=== PATIENT | female | born 1995 | race Caucasian/White ===

== ENCOUNTER 2016-05-19 19:00 | Emergency (ER) | payer OTHER ==
[~2016-05-19] VITALS: Ht 160 cm; Wt 52.4 kg
[2016-05-19 19:19] VITALS: TEMP 36.6; Ht 160 cm; Wt 52.4 kg
[2016-05-19] MEDS ORDERED: PRED20TA2 PO (19:52)
--- NOTE | 2016-05-19 20:09 | EMERGENCY ROOM VISIT NOTE ---
ED Visit Note First contact with patient: 19:37 CHIEF COMPLAINT: Rash HISTORY OF PRESENT ILLNESS: This 20 y/o patient presents to the emergency department complaining of a rash on her stomach which started 4 weeks ago. The patient denies fever, chills, nausea, or loss of appetite. They deny any URI symptoms. The patient has tried scabies cream prescribed by her PCP. The patient states the rash is itchy and rates the discomfort as 7/10. No change in food, soap, detergents, or other environmental factors. No new medications. No weakness or numbness. REVIEW OF SYSTEMS: A 6 system review of systems was completed with positives and pertinent negatives listed in the HPI. ALLERGIES: NKDA MEDICATIONS: Novolog, Lantus PMH: Diabetes SOCIAL HISTORY: Lives with sig other PHYSICAL EXAM: Vital Signs: Reviewed Nurse's notes, vital signs stable. GENERAL : 20 year old female, in no acute distress, well-developed, well-nourished. SKIN: Multiple scratch patel to arms, Rash is multiple small pin point lesions to abdomen . Capillary refill less than 2 seconds. EMERGENCY DEPARTMENT COURSE: Will start prednisone on Pt; warned pt about watching blood sugars on Prednisone. Also advised pt to continue Scabies cream and to follow up with Dermatology if continuing to have symptoms. Benadryl 50 mg every 6 hours as needed DIAGNOSIS: Rash DISCHARGE INSTRUCTIONS: Keep area clean and dry. Use an antibiotic ointment for 3-4 days, then let dry. Return to the emergency department in XXXXX hours for re-evaluation. Return sooner for any signs of infection (increasing redness, swelling, drainage). Ice and elevate for swelling and pain. Ibuprofen 600 mg and Tylenol 1000 mg every 6 hrs for pain. Current/Historical Medications Scheduled Prednisone (Prednisone Tab), 0 PO DAILY Allergies Coded Allergies: No Known Allergies (Unverified , 05/19/16) Vital Signs Date Time Temp Pulse Resp B/P Pulse Ox O2 Delivery O2 Flow Rate FiO2 05/19/16 19:19 36.6 96 18 106/71 97 Room Air Departure Information Impression Primary Impression: Rash and nonspecific skin eruption Dispostion Home / Self-Care Condition GOOD Prescriptions Prednisone (Prednisone Tab) 20 Mg Tab 0 PO DAILY, #7 TAB 2 TABS DAILY FOR 2 DAYS, THEN 1 TAB DAILY FOR 2 DAYS, THEN 1/2 TAB DAILY FOR 2 DAYS. Prov: Nahum Ghosh MD 05/19/16 Referrals Mateus Butler MD Forms WORK / SCHOOL INSTRUCTIONS, HOME CARE DOCUMENTATION FORM, IMPORTANT VISIT INFORMATION Patient Instructions Rash - [facility], My [facility] [address] Additional Instructions Take Benadryl 50 mg every 6 hours as needed for itching Be aware of your Blood sugar while you are on Prednisone Follow up with Dr Butler's office if continuing to have symptoms Recommend continuing to apply cream You have been examined and treated today on an emergency basis only. This is not a substitute for, or an effort to provide, complete comprehensive medical care. It is impossible to recognize and treat all injuries or illnesses in a single emergency department visit. It is therefore important that you follow up closely with Dr Montemayor. Call as soon as possible for an appointment. Thank you for your time and consideration. I look forward to speaking with you again soon. Please don't hesitate to call us if you have any questions.
[2016-05-19] MEDS ORDERED: Ventolin HFA INH (20:26)
[2016-05-19] MEDS ORDERED: INSDGIPEN SC (20:26)
[2016-05-19] MEDS ORDERED: NVLGI/PEN SC (20:26)
[2016-05-19 20:47] VITALS: BP 111/80; PULSE 97; O2SAT 96
== END 2016-05-19 20:48 | disposition home or self-care (01) ==
LOC: C.EDB 19:01 → C.EDD 20:48
DX: R21 Rash and other nonspecific skin eruption (principal); E11.9 Type 2 diabetes mellitus without complications; Z79.4 Long term (current) use of insulin

== ENCOUNTER 2024-07-28 11:13 | Observation (INO) ==
[2024-07-28] MEDS: SODIUM CHLORIDE 0.9% 1,000 ML IV ONE ×2 (11:50→13:29)
--- NOTE | 2024-07-28 12:04 | XRay Report ---
XR chest 1V portable CLINICAL HISTORY: Chest pain, nonspecific COMPARISON STUDY: 12/22/2021 FINDINGS: Heart size and pulmonary vasculature are normal. Inspiration is shallow. No effusion, conso lidation, or pneumothorax. IMPRESSION: No acute findings. ACT 112: Negative or not required by law. Electronically signed by: Frank Walters M.D. 07/28/2024 12:03 PM
--- NOTE | 2024-07-28 12:12 | Emergency Department Note ---
Impression & Plan Acute hyperglycemia, Type 1 diabetes, Metabolic acidosis, Shortness of breath ED Provider Note NAME: JANIE HUGHES AGE: 28 SEX: F : 1995 ARRIVES VIA: Walk-In INFORMANT: Patient ED PROVIDER(S): Kwesi Pressley DO CHIEF COMPLAINT: Shortness of breath HPI: Patient is a 28-year-old female who is asthmatic and type I diabetic who presents to the ER for shortness of breath which has been present for the past several months. Patient is a G2, P1 at 27 weeks. She notes that her glucometer/Dexcom stopped working yesterday and as she is type I diabetic she has not been able to check it and she vomited this morning felt like her sugars were elevated. She denies any belly pain. No vaginal bleeding or vaginal discharge. Still feels the baby move. No headache or change in vision. Shortness of breath was worse with the vomiting but it has come back to the baseline shortness of breath which she has had for the past several months while . ADDITIONAL HISTORY OBTAINED: Per HPI Chronic Medical/Social Conditions Affecting Care: Per HPI PAST MEDICAL HISTORY:See Below PAST SURGICAL HISTORY:See Below FAMILY HISTORY:See Below SOCIAL HISTORY:See Below HOME MEDICATIONS:See Below ALLERGIES:See Below VITALS:See Below PHYSICAL EXAMINATION: GENERAL: Sitting up in bed, alert, well appearing, well nourished, no distress, non-toxic EYE EXAM: normal conjunctiva. OROPHARYNX: no exudate, no erythema, lips, buccal mucosa, and tongue normal and mucous membranes are moist NECK: supple, no nuchal rigidity, no adenopathy, non-tender LUNGS: Clear to auscultation. Normal chest wall mechanics HEART: no murmurs, S1 normal and S2 normal ABDOMEN: abdomen soft, non-tender, normo-active bowel sounds, gravid uterus just below the xiphoid process UPPER EXTREMITIES: upper extremities are grossly normal. LOWER EXTREMITIES: No pitting edema. NEURO EXAM: Normal sensorium, cranial nerves II-XII grossly intact, normal speech, no gross weakness of arms, no gross weakness of legs. MEDICAL DECISION MAKING: Patient is a 28-year-old female who presents ER for the below stated complaint. IV was established blood work was obtained. Labs show no significant leukocytosis. Mild anemia 10.2. D-dimer was elevated [address] angio of the chest was performed and was unremarkable for any PEs. VBG with a pH 7.28 with a bicarb of 18. BMP with a bicarb of 17 but nongap. Initial glucose was in the 330s. She was given IV fluids as well as IV insulin x 5 units. Blood sugars trended down. She was still acidotic. As she is continue to give her fluids and discussed the case with the hospitalist for further evaluation management treatment. heart rate was 140. She had no vaginal bleeding vaginal discharge. No abdominal pain. Consults/Care Managements Discussions: Per [facility] Triage Nursing notes reviewed. Limited review of prior medical records performed Vital Signs: reviewed and remarkable for tachycardic Differential diagnosis: Differential diagnoses includes but is not limited to pneumonia, bronchitis, COPD/Asthma exacerbation, pneumothorax, pulmonary embolism, congestive heart failure, acute coronary syndrome ER treatment provided: See below Diagnostics interpreted by me include EKG and cardiac monitoring as listed below: -Cardiac Monitoring: An order was placed for continuous cardiac monitoring. The monitor shows a rate of 120 with sinus rhythm. -ECG: none -Laboratory studies:Interpreted by me as stated above in [facility] and shown below. Imaging studies: Xrays: As interpreted by me: Portable AP upright 1 view of the chest shows no focal infiltrate CTs show: CT angio the chest was negative Procedures: None Past Med/Surg History Problem List (Updated 07/28/24 @ 16:50 by Kwesi Pressley DO) Shortness of breath (Acute) Metabolic acidosis (Acute) Acute hyperglycemia (Acute) No significant past surgical history Asthma Type 1 diabetes (Acute) Medical History Ken disease Asthma Type 1 diabetes Surgical History H/O section Social History Smoking Status: Never smoker Preferred Language: Chilean marital status: Single current occupational status: employed Feels Safe at Home: Yes Allergies Allergies Allergy/AdvReac Type Severity Reaction Status Date / Time No Known Allergies Allergy Verified 07/28/24 14:09 Home Meds Home Medications Medication Instructions Recorded Confirmed insulin lispro 100 unit/mL 0 unit continuous subcutaneous 03/18/21 07/28/24 subcutaneous solution infusion CONTINOUS ferrous sulfate 325 mg (65 mg 325 mg PO DAILY 07/28/24 07/28/24 iron) tablet (FeroSul) sertraline 50 mg tablet 50 mg PO DAILY 07/28/24 07/28/24 Results & Data (ED) Vital Signs Vital Signs - 24 hr 07/28/24 11:18 07/28/24 11:39 07/28/24 11:49 Temperature 36.5 C Temperature Source Skin Pulse Rate 114 H 116 H Pulse Rate [Apical] Respiratory Rate 18 Respiratory Effort / Characteristics Respiratory Depth Blood Pressure 133/81 Blood Pressure [Left Arm] Blood Pressure Mean 98 Blood Pressure Mean [Left Arm] Blood Pressure Position [Left Arm] Pulse Oximetry 99 97 Oxygen Delivery Method Room Air Room Air Sepsis Recent Fever Within 48 Hours No Sepsis New/Unexplained Change in Mental Status No Sepsis Action Taken by Nursing No Action Required 07/28/24 11:49 07/28/24 13:00 07/28/24 15:00 Temperature Temperature Source Pulse Rate 112 H Pulse Rate [Apical] 108 H 106 H Respiratory Rate 16 21 Respiratory Effort / Characteristics Non-Labored Spontaneous Non-Labored Spontaneous Respiratory Depth Normal Normal Blood Pressure Blood Pressure [Left Arm] 104/75 114/83 Blood Pressure Mean Blood Pressure Mean [Left Arm] 84 93 Blood Pressure Position [Left Arm] Semi-fowlers Semi-fowlers Pulse Oximetry 97 98 100 Oxygen Delivery Method Room Air Room Air Room Air Sepsis Recent Fever Within 48 Hours Sepsis New/Unexplained Change in Mental Status Sepsis Action Taken by Nursing 07/28/24 15:49 Temperature Temperature Source Pulse Rate 102 H Pulse Rate [Apical] Respiratory Rate Respiratory Effort / Characteristics Respiratory Depth Blood Pressure Blood Pressure [Left Arm] Blood Pressure Mean Blood Pressure Mean [Left Arm] Blood Pressure Position [Left Arm] Pulse Oximetry Oxygen Delivery Method Sepsis Recent Fever Within 48 Hours Sepsis New/Unexplained Change in Mental Status Sepsis Action Taken by Nursing Laboratory Data 07/28/24 11:50 07/28/24 11:50 Lab Results 07/28/24 07/28/24 07/28/24 Range/Units 11:50 12:17 14:15 WBC 8.67 (4.8-10.8) K/ul RBC 3.71 L (4.20-5.40) M/uL Hgb 10.2 L (12.0-16.0) g/dl POC Hgb (12.0-16.0) g/dl Hct 30.3 L (37.0-47.0) % POC Hct (37-47) % MCV 81.7 (80.0-100.0) fL MCH 27.5 (25.0-34.0) pg MCHC 33.7 (32.0-36.0) g/dL RDW Std Deviation 36.9 (36.4-46.3) fL RDW Coeff of Gavi 12.3 (11.5-14.5) % Plt Count 264 (130-400) K/uL MPV 9.8 (9.4-12.4) fL Immature Gran % (Auto) 1.2 % Neut % (Auto) 62.2 % Lymph % (Auto) 29.1 % Story % (Auto) 5.5 % Eos % (Auto) 1.5 % Baso % (Auto) 0.5 % Neut # (Auto) 5.40 (1.40-6.50) K/uL Lymph # (Auto) 2.52 (1.20-3.40) K/uL Story # (Auto) 0.48 (0.11-0.59) K/uL Eos # (Auto) 0.13 (0.00-0.50) K/uL Baso # (Auto) 0.04 (0.00-0.20) K/uL Immature Gran # (Auto) 0.10 (0.01-0.20) K/uL D-Dimer 900 H* (0-500) ug/L FEU POC pH (7.35-7.45) POC pCO2 (35-46) mmHg POC pO2 (80-95) mmHg POC HCO3 (19-24) lexa/L POC Total CO2 (24-31) mmol/L POC Base Excess (-9-1.8) lexa/L POC ABG O2 Sat (90-95) % VBG pH 7.28 L (7.36-7.41) VBG pCO2 37 L (38-50) mmHg VBG pO2 38 mmHg VBG HCO3 17 mmol/L VBG O2 Saturation 62.0 % VBG Base Excess -8.6 mEq/L POC Sodium (135-144) mmol/L Sodium 127 L (136-145) mmol/L POC Potassium (3.3-5.0) mmol/L Potassium 3.9 (3.5-5.1) mmol/L Chloride 101 (98-107) mmol/L Carbon Dioxide 18 L (21-32) mmol/L Anion Gap 8 (3-11) BUN 11 (6-23) mg/dl Creatinine 0.69 (0.6-1.2) mg/dl Est Cr Clr Drug Dosing 115.8 ml/min eGFR 120.40 BUN/Creatinine Ratio 15.9 (10-20) Glucose 331 H* (70-99(Fasting)) mg/dl POC Glucose (70-99) mg/dl Estimat Average Glucose 189 mg/dl Hemoglobin A1c 8.2 H (4.5-5.6) % Calcium 8.1 L (8.6-10.3) mg/dl Phosphorus 3.0 (2.5-4.9) mg/dl Magnesium 1.6 L (1.7-2.4) mg/dl Total Bilirubin 0.3 (0.2-1.0) mg/dl AST 12 L (13-39) U/L ALT 9 (7-52) U/L Alkaline Phosphatase 92 (34-104) U/L Troponin I High Sens 3.1 (0-14) pg/ml Total Protein 5.7 L (6.0-8.3) gm/dl Albumin 2.9 L (3.4-5.0) gm/dl Globulin 2.8 (2.5-4.0) gm/dl Albumin/Globulin Ratio 1.0 (0.9-2) Lipase 14 (11-82) U/L Urine Color Yellow Urine Appearance Clear (Clear) Urine pH 6.0 (4.5-7.5) Ur Specific [place] 1.027 (1.000-1.030) Urine Protein Negative (Negative) Urine Glucose (UA) 3+ H (Negative) Urine Ketones 1+ H (Negative) Urine Blood Negative (Negative) Urine Nitrite Negative (Negative) Urine Bilirubin Negative (Negative) Urine Urobilinogen Negative (Negative) Ur Leukocyte Esterase Negative (Negative) 07/28/24 07/28/24 07/28/24 Range/Units 14:46 14:53 16:09 WBC (4.8-10.8) K/ul RBC (4.20-5.40) M/uL Hgb (12.0-16.0) g/dl POC Hgb 9.5 L (12.0-16.0) g/dl Hct (37.0-47.0) % POC Hct 28 L (37-47) % MCV (80.0-100.0) fL MCH (25.0-34.0) pg MCHC (32.0-36.0) g/dL RDW Std Deviation (36.4-46.3) fL RDW Coeff of Gavi (11.5-14.5) % Plt Count (130-400) K/uL MPV (9.4-12.4) fL Immature Gran % (Auto) % Neut % (Auto) % Lymph % (Auto) % Story % (Auto) % Eos % (Auto) % Baso % (Auto) % Neut # (Auto) (1.40-6.50) K/uL Lymph # (Auto) (1.20-3.40) K/uL Story # (Auto) (0.11-0.59) K/uL Eos # (Auto) (0.00-0.50) K/uL Baso # (Auto) (0.00-0.20) K/uL Immature Gran # (Auto) (0.01-0.20) K/uL D-Dimer (0-500) ug/L FEU POC pH 7.28 L (7.35-7.45) POC pCO2 36 (35-46) mmHg POC pO2 23 L (80-95) mmHg POC HCO3 17 L (19-24) lexa/L POC Total CO2 18 L (24-31) mmol/L POC Base Excess -10.0 L (-9-1.8) lexa/L POC ABG O2 Sat 33.0 L (90-95) % VBG pH 7.30 L (7.36-7.41) VBG pCO2 37 L (38-50) mmHg VBG pO2 26 mmHg VBG HCO3 18 mmol/L VBG O2 Saturation < 60.0 % VBG Base Excess -7.5 mEq/L POC Sodium 135 (135-144) mmol/L Sodium (136-145) mmol/L POC Potassium 3.6 (3.3-5.0) mmol/L Potassium (3.5-5.1) mmol/L Chloride (98-107) mmol/L Carbon Dioxide (21-32) mmol/L Anion Gap (3-11) BUN (6-23) mg/dl Creatinine (0.6-1.2) mg/dl Est Cr Clr Drug Dosing ml/min eGFR BUN/Creatinine Ratio (10-20) Glucose (70-99(Fasting)) mg/dl POC Glucose 192 H (70-99) mg/dl Estimat Average Glucose mg/dl Hemoglobin A1c (4.5-5.6) % Calcium (8.6-10.3) mg/dl Phosphorus (2.5-4.9) mg/dl Magnesium (1.7-2.4) mg/dl Total Bilirubin (0.2-1.0) mg/dl AST (13-39) U/L ALT (7-52) U/L Alkaline Phosphatase (34-104) U/L Troponin I High Sens (0-14) pg/ml Total Protein (6.0-8.3) gm/dl Albumin (3.4-5.0) gm/dl Globulin (2.5-4.0) gm/dl Albumin/Globulin Ratio (0.9-2) Lipase (11-82) U/L Urine Color Urine Appearance (Clear) Urine pH (4.5-7.5) Ur Specific [place] (1.000-1.030) Urine Protein (Negative) Urine Glucose (UA) (Negative) Urine Ketones (Negative) Urine Blood (Negative) Urine Nitrite (Negative) Urine Bilirubin (Negative) Urine Urobilinogen (Negative) Ur Leukocyte Esterase (Negative) Administered Medications Discontinued Medications Sodium Chloride (Nss) 1,000 mls @ 999 mls/hr IV .Q1H1M ONE Stop: 07/28/24 12:25 Last Infusion: 07/28/24 13:03 Dose: Infused Documented By: Admin: 07/28/24 11:50 Dose: 999 mls/hr Documented By: MMF Sodium Chloride (Nss) 1,000 mls @ 999 mls/hr IV .Q1H1M ONE Stop: 07/28/24 14:14 Last Infusion: 07/28/24 14:57 Dose: Infused Documented By: Admin: 07/28/24 13:29 Dose: 999 mls/hr Documented By: MMF Parenteral Electrolytes (Plasma-Lyte A Ph 7.4) 1,000 mls @ 999 mls/hr IV .Q1H1M ONE Stop: 07/28/24 15:00 Last Infusion: 07/28/24 16:24 Dose: Infused Documented By: Admin: 07/28/24 15:07 Dose: 999 mls/hr Documented By: SOLEDAD Insulin Human Regular (Novolin-R Insulin Per Unit Charge) 5 units IV NOW STA Stop: 07/28/24 13:15 Last Admin: 07/28/24 13:28 Dose: 5 units Documented By: SOLEDAD Co-signed By: JAMEY Ioversol (Optiray 320 125ml) 56 ml IV ONCE ONE Stop: 07/28/24 13:43 Last Admin: 07/28/24 13:42 Dose: 56 ml Documented By: SAYRA Imaging Data Radiologist's Impression: Chest X-Ray 07/28/24 11:25 XR chest 1V portable CLINICAL HISTORY: Chest pain, nonspecific COMPARISON STUDY: 12/22/2021 FINDINGS: Heart size and pulmonary vasculature are normal. Inspiration is shallow. No effusion, consolidation, or pneumothorax. IMPRESSION: No acute findings. ACT 112: Negative or not required by law. Electronically signed by: Frank Walters M.D. 07/28/2024 12:03 PM Chest CTA 07/28/24 12:44 CT angio chest PE protocol CT DOSE: 418.69 mGy.cm HISTORY: sob sent in + DD and +preg. TECHNIQUE: Multiple CTA images of the chest were obtained after the intravenous administration of 60 ml Optiray. Coronal and sagittal MIPS were obtained from the axial data set and were submitted for review. All measurements were obtained according to NASCET criteria. A dose lowering technique was utilized adhering to the principles of ALARA. COMPARISON STUDY: None FINDINGS: There is no pulmonary consolidation, pleural effusion, or pneumothorax. No enlarged adenopathy. No pericardial effusion. No thoracic aortic dissection or aneurysm. No pulmonary embolism. No acute osseous findings. IMPRESSION: No pulmonary embolism or pneumonia seen. ACT 112: Negative or not required by law. The above report was generated using voice recognition software. It may contain grammatical, syntax or spelling errors. Electronically signed by: Frank Walters M.D. 07/28/2024 1:52 PM Discharge Plan Visit Data Chief Complaint: Shortness of Breath/Dyspnea Stated Complaint: HARD TIME BREATHING, HEART POUNDING ED Provider: Kwesi Pressley Discharge Problem: Acute hyperglycemia, Type 1 diabetes, Metabolic acidosis, Shortness of breath Forms Stand Alone Forms: My [facility] Prescriptions Prescriptions: No Action insulin lispro 100 unit/mL solution 0 unit continuous subcutaneous infusion CONTINOUS Rx Instructions: up to 50 units per day via medtronic insulin pump ferrous sulfate [FeroSul] 325 mg (65 mg iron) tablet 325 mg PO DAILY sertraline 50 mg tablet 50 mg PO DAILY Referrals Referrals: Mikel Montemayor [Primary Care Provider] - Discharge Problem: Type 1 diabetes Qualifiers: Diabetes mellitus complication status: with other specified complication Q ualified Code(s): E10.69 - Type 1 diabetes mellitus with other specified complication
[2024-07-28 12:14] LABS: Basophils # (auto) 0.04 K/uL (0.00-0.20); Basophils % (auto) 0.5 %; Eosinophils # (auto) 0.13 K/uL (0.00-0.50); Eosinophils % (auto) 1.5 %; Hematocrit (blood only) 30.3 % (37.0-47.0); Hemoglobin 10.2 g/dl (12.0-16.0); Immature Granulocytes % (auto) 1.2 %; Lymphocytes # (auto) 2.52 K/uL (1.20-3.40); Lymphocytes % (auto) 29.1 %; Mean Corpuscular Hemoglobin 27.5 pg (25.0-34.0); Mean Corpuscular Hgb Conc 33.7 g/dL (32.0-36.0); Mean Corpuscular Volume 81.7 fL (80.0-100.0); Mean Platelet Volume 9.8 fL (9.4-12.4); Monocytes # (auto) 0.48 K/uL (0.11-0.59); Monocytes % (auto) 5.5 %; Neutrophils % (auto) 62.2 %; Platelet Count 264 K/uL (130-400); RDW Coefficient of Variation 12.3 % (11.5-14.5); RDW Standard Deviation 36.9 fL (36.4-46.3); Red Blood Count 3.71 M/uL (4.20-5.40); White Blood Count 8.67 K/ul (4.8-10.8)
[2024-07-28 12:33] LABS: D Dimer 900 ug/L FEU (0-500)
[2024-07-28 12:47] LABS: Albumin Level 2.9 gm/dl (3.4-5.0); Bilirubin,Total 0.3 mg/dl (0.2-1.0); Calcium 8.1 mg/dl (8.6-10.3); Potassium 3.9 mmol/L (3.5-5.1)
[2024-07-28 12:52] LABS: Troponin I High Sensitivity 3.1 pg/ml (0-14)
[2024-07-28 13:16] LABS: BUN Creatinine Ratio 15.9 (10-20); Creatinine Clr Calc Pharmacy 115.8 ml/min; Globulin 2.8 gm/dl (2.5-4.0); Total Protein 5.7 gm/dl (6.0-8.3)
[2024-07-28 13:28] LABS: Appearance Urine Clear (Clear); Bilirubin Urine Negative (Negative); Blood Urine Negative (Negative); Color Urine Yellow; Glucose Urine UA 3+ (Negative); Ketones Urine 1+ (Negative); Leukocyte Esterase Urine Negative (Negative); Nitrite Urine Negative (Negative); Protein Urine Negative (Negative); Specific Gravity Urine 1.027 (1.000-1.030); Urobilinogen Urine Negative (Negative)
[2024-07-28] MEDS: NovoLIN-R INSULIN PER UNIT CHARGE IV STA (13:28)
[2024-07-28] MEDS: OPTIRAY 320 125ml IV ONE (13:42)
--- NOTE | 2024-07-28 13:54 | CT Scan Report ---
CT angio chest PE protocol CT DOSE: 418.69 mGy.cm HISTORY: sob sent in + DD and +preg. TECHNIQUE: Multiple CTA images of the chest were obtained after the intravenous administration of 60 ml Optiray. Coronal and sagittal MIPS were obtained from the axial data set and were submitted for r eview. All measurements were obtained according to NASCET criteria. A dose lowering technique was ut ilized adhering to the principles of ALARA. COMPARISON STUDY: None FINDINGS: There is no pulmonary consolidation, pleural effusion, or pneumothorax. No enlarged adenopa thy. No pericardial effusion. No thoracic aortic dissection or aneurysm. No pulmonary embolism. No ac alli osseous findings. IMPRESSION: No pulmonary embolism or pneumonia seen. ACT 112: Negative or not required by law. The above report was generated using voice recognition software. It may contain grammatical, syntax o r spelling errors. Electronically signed by: Frank Walters M.D. 07/28/2024 1:52 PM
[2024-07-28 14:26] LABS: Base Excess VBG -8.6 mEq/L; HCO3 VBG 17 mmol/L; PCO2 VBG 37 mmHg (38-50); PO2 VBG 38 mmHg; pH VBG 7.28 (7.36-7.41)
[2024-07-28] MEDS ORDERED: GLUCAGON FOR INJ 1 MG VIAL SQ PRN (14:30)
[2024-07-28] MEDS ORDERED: CARBOHYDRATES FOR HYPOGLYCEMIA PO PRN (14:30)
[2024-07-28] MEDS ORDERED: DKA GOAL RANGE 150-250 mg/dl ONE (14:30)
[2024-07-28] MEDS ORDERED: DEXTROSE 50% 50 ML SYRINGE IV PRN (14:30)
[2024-07-28] MEDS ORDERED: GLUCOSE 10 TAB/TUBE PO PRN (14:30)
[2024-07-28] MEDS ORDERED: GLUCOSE 40% GEL 15 GM TUBE PO PRN (14:30)
--- NOTE | 2024-07-28 14:39 | Electrocardiogram Report ---
Test Reason : Blood Pressure : */* mmHG Vent. Rate : 111 BPM Atrial Rate : 111 BPM P-R Int : 156 ms QRS Dur : 66 ms QT Int : 316 ms P-R-T Axes : 42 16 0 degrees QTcB Int : 429 ms Sinus tachycardia Nonspecific T wave abnormality Abnormal ECG When compared with ECG of 22-Dec-2021 12:09, Nonspecific T wave abnormality now evident in Anterior leads Confirmed by Josep Rosales ([id number]) on 07/28/2024 2:39:15 PM Referred By: Confirmed By: Josep Rosales
[2024-07-28 14:55] LABS: Magnesium 1.6 mg/dl (1.7-2.4)
[2024-07-28 15:03] LABS: Estimated Average Glucose 189 mg/dl; Hemoglobin A1C 8.2 % (4.5-5.6)
[2024-07-28] MEDS: PLASMA-LYTE A 1,000 ML IV ONE (15:07)
--- NOTE | 2024-07-28 15:17 | History & Physical Report ---
Date of Service July 28, 2024 Assessment & Plan (1) Metabolic acidosis with normal anion gap and bicarbonate losses: (2) : (3) Type 1 diabetes: Lin Rojas is a pleasant 28-year-old female at 27 weeks of gestation who presented for SOB x 1 month. H/o T1DM. Found to be in a non-anion gap metabolic acidosis on arrival. Coming in for hyperglycemia/SOB workup. #Non-anion gap metabolic acidosis The leading cause for SOB on admission is acidosis in the setting of a resolving DKA VB.28/37/38/17 Anion gap WNL at 8 Leukocytosis; afebrile; non-hypoxic in the emergency department CXR without acute findings Chest CTA revealed no pulmonary embolism or pneumonia Given mild acidosis at 7.28->7.30 on arrival and anion gap WNL, suspect non- anion gap metabolic acidosis No diarrhea; no history of renal issues; ? Resolving DKA Trend VBG + BMP q6h for now Sodium bicarbonate 150 mEq x 1 L Update at 1930: touched base with OB nursing staff, as well as overnight hospitalist team regarding labs at 2200. If patient should develop an anion gap on her 2200 labs, will d/c her insulin pump and treat as DKA. If no anion gap, but residual acidosis, will continue sodium bicarb (with additional liter as needed). If all labs improving, no changes to current treatment plan. # Continuous monitoring OB consult appreciated #Hypomagnesemia Mild; magnesium 1.6 on arrival Magnesium sulfate 400mg p.o. BID Recheck AM mag #T1DM Last A1c at 8.2% on 07/28/2024 Patient is okay to use her own continuous insulin pump while inpatient BSG checks q1h while in the emergency department T1DM diet Pharmacy glycemic consult appreciated in the setting of poor glycemic control/metabolic acidosis Adjust regimen as needed #Iron deficiency anemia Hgb 10.2 on arrival; MCV 81 Clinically, no signs of active bleeding on physical exam Patient reports that she was prescribed iron tablets 3 weeks ago, but has not been taking them Fe panel ordered, pending Continue iron supplement Disposition: Admit to [facility] floor Full code T1DM diet VTE PPx: SCDs History of Present Illness Chief Complaint: SOB/dyspnea Primary Care Provider: Mikel Rojas is a pleasant 28-year-old female at 27 weeks gestation with PMH of T1DM. She presented on 07/28 for shortness of breath x 1 month. SOB is mainly with exertion, but does occur at rest as well. Additionally, when she lies flat on her back, she reports that she develops chest palpitations and chest pain. She does have a history of DKA, and feels that she has had shortness of breath in the past with episodes of DKA. Patient did not take her regular morning medicine today. She has not been taking her prenatals recently, as they make her sick. Additionally, she was prescribed iron supplements 3 weeks ago, but has not been taking them (only take 1 dose) as she was concerned it would make her sick. No prior history of pulmonary conditions such as asthma or COPD. No history of DVT/PE. No cardiac history such as OK, CVA, or CHF. No family history of cardiac conditions to her knowledge. Patient reports that her chest pain only occurs when she lies flat on her back (and occasionally when walking). It is located on her left side; no radiation to the left shoulder or down the arm. She characterizes it as a "squeezing" pain that lasts 5 to 10 minutes at a time. Sitting up usually makes it better. Patient reports this is her second , and she is following with an OB Dr. Craig in [place]. Patient reports she uses a Dexcom and OmniPod at home for her insulin management. She has concerns that her Dexcom stopped working, but reports that her insulin pump is still currently working. She normally gets 25.8 units daily for her basal program. Target 110, carb ratio 10, CF 35. She does not use CPAP at night or supplemental oxygen at home. She denies any recent diarrhea, and reports she has actually been constipated recently. She does have a history of UTIs, but no prior history of issues with her kidneys. Patient denies smoking, tobacco use, recreational drug use, chewing tobacco, or alcohol use while . Additionally, she does have concerns for preeclampsia at times, as she sees dark spots. No photophobia. She does have blurry vision at times, but does wear glasses at baseline. She does not own a home BP cuff. Patient is tachycardic at 108 bpm at time admission; SpO2 98% on room air; vitals otherwise stable. ED course: NSS 1000 mL IV x 2 Insulin regular 5 units IV Plasma-Lyte 1000 mL IV x 1 ROS: Patient endorses dizziness/lightheadedness when standing and walking, SOB at rest and with exertion, chest pain when up walking around x 1 month, chest pain/palpitations when laying flat on back (has been sleeping on side), dry cough, abdominal cramping, one episode of vomiting the morning of 07/28 (was not nauseous beforehand, so unsure what caused it). Patient denies fever, chills, night-sweats, syncope, orthopnea, chest pain, pleuritic CP, diarrhea, changes in urinary/bowel habits, blood in the urine/stool, melena, or numbness/tingling in the arms or legs. Allergies Allergy/AdvReac Type Severity Reaction Status Date / Time No Known Allergies Allergy Verified 07/28/24 14:09 Home Medications Medication Instructions Recorded Confirmed Type insulin lispro 100 unit/mL 0 unit continuous subcutaneous 03/18/21 07/28/24 History subcutaneous solution infusion CONTINOUS ferrous sulfate 325 mg (65 mg 325 mg PO DAILY 07/28/24 07/28/24 History iron) tablet (FeroSul) sertraline 50 mg tablet 50 mg PO DAILY 07/28/24 07/28/24 History Past Med/Surg History Problem List (Updated 07/28/24 @ 20:26 by Claribel Theodore MD, FACOG) Type 1 diabetes Metabolic acidosis with normal anion gap and bicarbonate losses Shortness of breath (Acute) Metabolic acidosis (Acute) Acute hyperglycemia (Acute) No significant past surgical history Asthma patient denies having this Medical History (Updated 07/28/24 @ 20:26 by Claribel Theodore MD, FACOG) Depression History of diabetes mellitus, type I Ken disease Surgical History H/O section Social History Smoking Status: Never smoker Hx Alcohol Use: No Hx Substance Use: No Preferred Language: Zimbabwean marital status: Single current occupational status: employed Feels Safe at Home: Yes Review of Systems Review of Systems: See HPI above Physical Exam Physical Exam: General: no acute distress; pleasant affect; anxious; non-toxic appearing; well- nourished; cooperative; SpO2 100% on RA HEENT: normocephalic, atraumatic; no scleral icterus; PERRLA w/ EOMs intact; vision and hearing intact Neck: supple; no lymphadenopathy; trachea midline Skin: warm, dry without signs of tenting; no cyanosis; no rashes, bruising, lesions, or erythema noted CV: chest wall NTP; RR, tachycardic at 110 bpm; S1/S2 normal; no murmurs/rubs/gallops; pulses intact and symmetric at radial, DP, and PT Lungs: no acute respiratory distress; symmetrical chest wall expansion; clear breath sounds across all lung knowles w/o adventitious sounds; no wheezing ABD: Soft, NTP; BS present; no rebound/guarding; distention secondary to MSK: no tics or fasciculations; non-pitting edema noted in the LEs b/l, nonerythematous Neuro: A&Ox3; normal mood and affect; fluent speech; no focal deficits; sensation intact and symmetric in the lower extremities bilaterally Trial of patient getting up and walking to the bathroom; when she returned to her bed, she did appear physically winded, but SpO2 remained 100% on RA (no desaturation). Results & Data Results & Data Vital Signs (Past 12 Hours) Vital Signs Temp Pulse Pulse Resp BP BP Pulse Ox 07/28/24 15:00 106 H 21 114/83 100 07/28/24 13:00 108 H 16 104/75 98 07/28/24 11:49 112 H 97 07/28/24 11:49 97 07/28/24 11:39 116 H 07/28/24 11:18 36.5 C 114 H 18 133/81 99 O2 Del Method 07/28/24 15:00 Room Air 07/28/24 13:00 Room Air 07/28/24 11:49 Room Air 07/28/24 11:49 Room Air 07/28/24 11:39 07/28/24 11:18 Room Air Laboratory Results Abnormal lab results 07/28/24 07/28/24 07/28/24 Range/Units 11:50 12:17 14:15 RBC 3.71 L (4.20-5.40) M/uL Hgb 10.2 L (12.0-16.0) g/dl Hct 30.3 L (37.0-47.0) % D-Dimer 900 H* (0-500) ug/L FEU VBG pH 7.28 L (7.36-7.41) VBG pCO2 37 L (38-50) mmHg Sodium 127 L (136-145) mmol/L Carbon Dioxide 18 L (21-32) mmol/L Glucose 331 H* (70-99(Fasting)) mg/dl POC Glucose (70-99) mg/dl Hemoglobin A1c 8.2 H (4.5-5.6) % Calcium 8.1 L (8.6-10.3) mg/dl Magnesium 1.6 L (1.7-2.4) mg/dl AST 12 L (13-39) U/L Total Protein 5.7 L (6.0-8.3) gm/dl Albumin 2.9 L (3.4-5.0) gm/dl Urine Glucose (UA) 3+ H (Negative) Urine Ketones 1+ H (Negative) 07/28/24 Range/Units 14:53 RBC (4.20-5.40) M/uL Hgb (12.0-16.0) g/dl Hct (37.0-47.0) % D-Dimer (0-500) ug/L FEU VBG pH (7.36-7.41) VBG pCO2 (38-50) mmHg Sodium (136-145) mmol/L Carbon Dioxide (21-32) mmol/L Glucose (70-99(Fasting)) mg/dl POC Glucose 192 H (70-99) mg/dl Hemoglobin A1c (4.5-5.6) % Calcium (8.6-10.3) mg/dl Magnesium (1.7-2.4) mg/dl AST (13-39) U/L Total Protein (6.0-8.3) gm/dl Albumin (3.4-5.0) gm/dl Urine Glucose (UA) (Negative) Urine Ketones (Negative) Diagnostic Findings Chest X-Ray 07/28/24 11:25 XR chest 1V portable CLINICAL HISTORY: Chest pain, nonspecific COMPARISON STUDY: 12/22/2021 FINDINGS: Heart size and pulmonary vasculature are normal. Inspiration is shallow. No effusion, consolidation, or pneumothorax. IMPRESSION: No acute findings. ACT 112: Negative or not required by law. Electronically signed by: Frank Walters M.D. 07/28/2024 12:03 PM Chest CTA 07/28/24 12:44 CT angio chest PE protocol CT DOSE: 418.69 mGy.cm HISTORY: sob sent in + DD and +preg. TECHNIQUE: Multiple CTA images of the chest were obtained after the intravenous administration of 60 ml Optiray. Coronal and sagittal MIPS were obtained from the axial data set and were submitted for review. All measurements were obtaine d according to NASCET criteria. A dose lowering technique was utilized adhering to the principles of ALARA. COMPARISON STUDY: None FINDINGS: There is no pulmonary consolidation, pleural effusion, or pneumothorax. No enlarged adenopathy. No pericardial effusion. No thoracic aortic dissection or aneurysm. No pulmonary embolism. No acute osseous findings. IMPRESSION: No pulmonary embolism or pneumonia seen. ACT 112: Negative or not required by law. The above report was generated using voice recognition software. It may contain grammatical, syntax or spelling errors. Electronically signed by: Frank Walters M.D. 07/28/2024 1:52 PM ECG Additional Comments: ECG revealed sinus tachycardia at 111 bpm; QTc 429 Code Status & VTE Plan Code Status Full code VTE Prophylaxis Plan VTE Prophylaxis will be ordered: Yes Supervising Physician Co-Signing Physician Notes I personally saw and examined the patient. I independently reviewed the labs, EKG, imaging, problem list, medication list, past medical history and family history. I verified all tineo points and agree with Sundeep Eric PA-C with the following exceptions and/or additions: 28 year old presents to the ER with shortness of breath and vomiting O/E HS increased rate regular rhythm, no murmurs, Chest CTAB, Abdo distended with fetus palpable A/P NAGMA / T1DM - I suspect she has a resolving DKA, possibly some bicarb loss from vomiting, She is only a few anions away for a diagnosis of DKA with ketones in her urine and symptomatic from her metabolic acidosis (shortness of breath) therefore will admit overnight to try to get her lab values (and subsequently symptoms) better. Start Sodium bicarb 150 meq IV drip 1L, If bicarb corrects as expected she can be switched to LR for IV fluids overnight. Initial bicarb now down to 16 due to NSS boluses given in the ER but this should improve with bicarb drip. I would monitor this with outpatient labs as even back in December 2021 she had a bicarb of 20 so I suspect she gets a mild metabolic acidosis as an outpatient intermittently which may explain her shortness of breath. Her acut e presentation however is due to her Dexacom not communicating with her insulin pump so all she was getting was her basal rate therefore will use BSG checks to correct and carb ratio extra boluses from her pump Sinus tachycardia - I am less clear why she has a ST, unable to place on child monitor on OB floor but I don't think this is hugely necessary, CT for PE was reassuringly negative, hopefully as we rehydrate her and metabolic acidosis resolves Shortness of breath - CT for PE without acute abnormality, I suspect this is due to metabolic acidosis and respiratory compensation, should improve with sodium bicarb drip. PG Care Time/CCT Total # of Minutes Spent Total Time Spent with Patient: Total time spent is greater than 50% in coordination of care (as documented) at patient's floor/unit and/or counseling patient: C[place] [address] INT INP/OBS CARE 3/75MIN Patient Type Established Medical Decision Making High Complexity Diagnoses Metabolic acidosis with normal anion gap and bicarbonate losses E87.20 Z34.90 Type 1 diabetes E10.69 Diabetes mellitus complication status: with other specified complication (3) Type 1 diabetes Diabetes mellitus complication status: with other specified complication Qualified Code(s): E10.69 - Type 1 diabetes mellitus with other specified complication
[2024-07-28] MEDS ORDERED: INSULIN HUMAN REGULAR SC PRN ×2 (16:03→19:10)
[2024-07-28] MEDS ORDERED: PHARMACY GLYCEMIC MGMT CONSULT PRN (16:07)
[2024-07-28 16:13] LABS: iSTAT Arterial Blood Gas HCO3 17 meg/L (19-24); iSTAT Arterial Blood Gas pCO2 36 mmHg (35-46); iSTAT Arterial Blood Gas pH 7.28 (7.35-7.45); iSTAT Arterial Blood Gas pO2 23 mmHg (80-95); iSTAT Carbon Dioxide 18 mmol/L (24-31); iSTAT Hematocrit 28 % (37-47); iSTAT Hemoglobin 9.5 g/dl (12.0-16.0); iSTAT Potassium 3.6 mmol/L (3.3-5.0); iSTAT Sodium 135 mmol/L (135-144)
[2024-07-28] MEDS ORDERED: INSULIN, Regular PUMP SC SCH ×2 (16:15→19:00)
[2024-07-28 16:18] LABS: Base Excess VBG -7.5 mEq/L; HCO3 VBG 18 mmol/L; Oxygen Saturation VBG < 60.0 %; PCO2 VBG 37 mmHg (38-50); PO2 VBG 26 mmHg
[2024-07-28] MEDS ORDERED: INSULIN ASPART PER UNIT CHARGE SC SCH (16:30)
[2024-07-28 16:51] LABS: Calcium 7.9 mg/dl (8.6-10.3); Potassium 3.9 mmol/L (3.5-5.1)
[2024-07-28 16:56] LABS: BUN Creatinine Ratio 16.4 (10-20); Creatinine Clr Calc Pharmacy 145.3 ml/min
[2024-07-28] MEDS: MAGNESIUM OXIDE 400 MG TAB PO ONE (17:09)
[2024-07-28 17:14] LABS: Ferritin 6.6 ng/ml (8-388)
[2024-07-28] MEDS: SODIUM BICARBONATE 8.4% 150 MEQ in WATER, STERILE 1,000 ML IV SCH (17:57)
[2024-07-28] MEDS: INSULIN, Rapid-Acting PUMP SC SCH (19:45)
--- NOTE | 2024-07-28 19:45 | History & Physical Report ---
Date of Service July 28, 2024 Assessment & Plan (1) Type 1 diabetes: (2) : (3) Metabolic acidosis with normal anion gap and bicarbonate losses: Plan Advised hospitalist service that when patient in DKA, the fetus should be continuously monitored. Therefore, she will be in and labor and delivery room for this. However, the management of the DKA, type 1 diabetes will be with the hospitalist service. All orders will come from them. Initially the fetus has a reassuring status. If the fetus does appear nonreassuring, the treatment would be to resolve the DKA and the status will resolve as well. If the status remains reassuring overnight and she continues to improve from a medical standpoint, can consider transfer to the floor with monitoring q shift. Patient expresses understanding. Admission and Anticipated Discharge Date Admission Date: July 28, 2024 History of Present Illness Chief Complaint: DKA Primary Care Provider: Mikel Montemayor Patient is a 28yowf with EDC of 10/27/24 per patient report, iup at 27 0/7 weeks who presented to the ED with SOB x 1 month, cp, n/v, feeling like elevated sugars. 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 She was evaluated in the ED. Neg cxr, neg chest CT. Her initial sugar was 330. She was evaluated in the Ed and found to have resolving DKA. Hospitalist has admitted but since having DKA, recommendation would be for continuous monitoring during treatment. The only place to do that in the hospital is on labor and delivery. Patient has a hx of type 1DM. She denies hx of asthma. 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 She gets her pnc with Dr. Martinez in [place]. I do not have records currently, requested. She notes as far as the is concerned, her sugars have been poorly controlled--"all over the place". It sounds like she had an early ultrasound and a normal anatomy us. she notes she has not had any growth ultrasounds, but has one scheduled for next week. Has hx of c/s for her first delivery--NRFHT at 35 1/7. A1C today is 8.2. She does not have an elevated WBC, her h/h shows anemia consistent with . Patient notes good fm. no contractions or vaginal bleeding. She notes n/v in the first and early second trimester but that has resolved. Did vomit once this am. Allergies Allergy/AdvReac Type Severity Reaction Status Date / Time No Known Allergies Allergy Verified 07/28/24 14:09 Home Medications Medication Instructions Recorded Confirmed Type insulin lispro 100 unit/mL 0 unit continuous subcutaneous 03/18/21 07/28/24 History subcutaneous solution infusion CONTINOUS ferrous sulfate 325 mg (65 mg 325 mg PO DAILY 07/28/24 07/28/24 History iron) tablet (FeroSul) sertraline 50 mg tablet 50 mg PO DAILY 07/28/24 07/28/24 History Patient History Medical History (Updated 07/28/24 @ 20:26 by Claribel Theodore MD, FACOG) Depression History of diabetes mellitus, type I Borden disease Surgical History H/O section Social History Smoking Status: Never smoker Preferred Language: Ugandan marital status: Single current occupational status: employed Feels Safe at Home: Yes OB History first c/s delivery--nrfht, complicated by poorly controlled type 1 DM 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 Results & Data Vital Signs (Past 12 Hours) Vital Signs Temp Pulse Pulse Resp BP BP Pulse Ox 07/28/24 18:56 123 H 18 118/78 98 07/28/24 18:30 110 H 15 118/78 99 07/28/24 17:00 108 H 18 113/75 100 07/28/24 15:49 102 H 07/28/24 15:00 106 H 21 114/83 100 07/28/24 13:00 108 H 16 104/75 98 07/28/24 11:49 112 H 97 07/28/24 11:49 97 07/28/24 11:39 116 H 07/28/24 11:18 36.5 C 114 H 18 133/81 99 O2 Del Method 07/28/24 18:56 Room Air 07/28/24 18:30 Room Air 07/28/24 17:00 Room Air 07/28/24 15:49 07/28/24 15:00 Room Air 07/28/24 13:00 Room Air 07/28/24 11:49 Room Air 07/28/24 11:49 Room Air 07/28/24 11:39 07/28/24 11:18 Room Air Code Status & VTE Plan VTE Prophylaxis Plan VTE Prophylaxis will be ordered: Yes Coding Level of Care Code 86217 IN/OBS CONSULT LVL 2,35M Diagnoses Type 1 diabetes E10.69 Diabetes mellitus complication status: with other specified complication Z34.90 Metabolic acidosis with normal anion gap and bicarbonate losses E87.20 (1) Type 1 diabetes Diabetes mellitus complication status: with other specified complication Qualified Code(s): E10.69 - Type 1 diabetes mellitus with other specified complication
--- OUTSIDE RECORDS SUMMARY | 2024-07-28 20:20 | External Medical Summary | Summary of Care ---
Author Name Unknown Organization [facility] Address [address] [place] [address] Phone [phone] Care Team Providers Care Furniture Builder Name Role Phone Unavailable Primary Care Provider Unavailabl e Reason for Visit * Reason Onset Date Comments Medication Refill 07/27/2024 Encounter Details Date Type Department Care Team (Late st Contact Info) Description [facility] [address] [place] [address] Peewee Carpenter CRNP [address] [place] [address] Type 1 diabetes mellitus on insulin therapy (HCC) Allergies Active Allergy Reactions Criticality Noted Date Comments No Known Drug Allergy 04/02/2001 documented as of this encounter (statuses as of 07/28/2024) Medications Ondansetron 4 MG Oral Tablet Disintegrating (Zofran) Place 1 Tablet on tongue every 8 hours as needed for Nausea or Vomiting. dissolve on tongue. 12 Tablet 023 Active Norgestim-Eth Estrad Triphasic 0.18/0.215/0.25 MG-25 MCG Oral Tablet Take 1 Tablet by mouth in the morning. Active BD Pen Needle Short U/F 31G X 8 MM (Insulin Pen Needle) Use to inject insulin in case of pump failure up to 4 times daily 100 Each 5 023 Active Gvoke HypoPen 2-Pack 1 MG/0.2ML Subcutaneous Solution Auto-injector (Glucagon) Inject 1.0 mg under the skin of belly/thigh or upper arm as needed for unresponsiveness due to suspected hypoglycemia 0.4 mL 11 023 Active Contour Next Test In Vitro Strip (Glucose Blood) CONTOUR NEXT test strip, For testing blood sugar 4 times daily in case of CGM failure. E10.9 200 Strip 11 023 Active Sertraline HCl 50 MG Oral Tablet (Zoloft)Indicatio ns:Mild episode of recurrent major depressive disorder (HCC) Take 1.5 Tablets by mouth in the morning. 30 Tablet 11 023 Active Accu-Chek Guide In Vitro Strip (Glucose Blood) For testing blood sugar 4 times daily 200 Strip 11 023 Active Lisinopril 2.5 MG Oral Tablet (Prinivil)Indicat ions:Type 1 diabetes mellitus in patient 13 to 19 years of age with hemoglobin A1c goal of less than 7.5% ([facility]),Proteinuria , unspecified type take 1 tablet by mouth every morning 30 Tablet 024 Active Omnipod 5 G6 Intro (Gen 5) KitIndications:Ty pe 1 diabetes mellitus on insulin therapy ([facility]) Use as directed. 1 Kit 024 Active Dexcom G6 Hearing Therapy Director DeviceIndications :Type 1 diabetes mellitus on insulin therapy ([facility]) Use as directed. 1 Each 024 Active Insulin Aspart 100 UNIT/ML Injection Solution (NovoLOG)Indicati ons:Type 1 diabetes mellitus on insulin therapy ([facility]) For use in insulin pump, anticipated need is up to 75 units per day. 80 mL 3 024 Active Omnipod 5 [id number] Pods Gen 5Indications:Type 1 diabetes mellitus on insulin therapy ([facility]) Use as directed. Apply new pod every 2-3 days. 15 Each 3 024 Active Dexcom G6 SensorIndications :Type 1 diabetes mellitus on insulin therapy ([facility]) 1 every 10 days to monitor blood sugar 3 Each 3 024 Active Ketostix In Vitro Strip (Acetone (Urine) Test)Indications: Type 1 diabetes mellitus on insulin therapy ([facility]) FOR TEST URINE KETONES IF GLUCOSE OVER 300 TWICE IN A ROW OR SICK 100 Strip 3 025 Active Insulin Aspart FlexPen 100 UNIT/ML Subcutaneous Solution Pen-injector For pump back up, inject before meals to cover carbs and correct high glucoses. TDD: 50 u/d 15 mL 025 Active Insulin Glargine Solostar 100 UNIT/ML Subcutaneous Solution Pen-injector (Lantus SoloStar) For insulin pump back up: inject 31 units daily 15 mL 025 Active Dexcom G6 TransmitterIndica tions:Type 1 diabetes mellitus on insulin therapy (HCC) Use as directed. 1 Each 3 025 Active Dexcom G6 TransmitterIndica tions:Type 1 diabetes mellitus on insulin therapy (HCC) Use as directed. 1 Each 3 024 2024 Disconti nued(Ref ill) documented as of this encounter (statuses as of 07/28/2024) Active Problems Problem Noted Date Diagnosed Date Food insecurity 02/11/2023 Overview: Per [facility] Protocol documented as of this encounter (statuses as of 07/28/2024) Resolved Problems Problem Noted Date Diagnosed Date Resolved Date DKA (diabetic ketoacidoses) 04/20/2013 01/14/2023 Hyperchloremia 12/15/2012 01/22/2023 DKA, type 1 12/14/2012 01/22/2023 Type 1 diabetes mellitus in patient 13 to 19 years of age with hemoglobin A1c goal of less than 7.5% 09/16/2009 01/22/2023 Overview (09/05/2015): ICD-10 update of inactive term documented as of this encounter (statuses as of 07/28/2024) Social History Tobacco Use Types Packs/Day Years Used Date Smoking Tobacco: Never Passive Smoke Exposure: Yes Smokeless Tobacco: Never Alcohol Use Standard Drinks/Week Comments No 0 (1 standard drink = 0.6 oz pur e alcohol) PHQ-2 Answer Date Recorded PHQ Adult Total Score 15 01/14/2023 Hunger Vital Sign Answer Date Recorded Within the past 12 months, y ou worried that your food would run out before you got the money to buy more. Sometimes true Within the past 12 months, t he food you bought just didn't last and you didn't have money to get more. Sometimes true 03/2023 Comments No Sex and Gender Information Value Date Recorded Sex Assigned at Female 07/03/2023 8:52 PM EST Legal Sex Female 7:15 AM EST Gender Identity Female 07/03/2023 8:52 PM EST Sexual Orientation Straight 07/03/2023 8: 52 PM EST documented as of this encounter Miscellaneous Notes * Telephone Encounter - Kit Garcia [facility] - 07/27/2024 7:02 PM EDT Signed Prescriptions: Disp Refills Dexcom G6 Transmitter 1 Each 3 Sig: Use as directed.Authorizing Provider: Laurel CARPENTER User: KTI GARCIA documented in this encounter Plan of Treatment Upcoming Encounters Date Type Department Care Team (Late st Contact Info) Description 08/03/2024 12:00 PM EDT Office Visit Endocrinology Simi [address] [place] [phone] Akiko Sy CRNP [address] [place] [address] Health Maintenance Due Date Last Done Comments Hepatitis C Screening 2012 DTap/Tdap Vaccines (1 - Tdap) 2013 Hepatitis B Vaccine (1 of 3 - 19+ 3-dose series) 2013 Pneumococcal Vaccine: Pediatrics (0 to 5 Years) and At-Risk Patients (6 to 18 Years and 19+ Years) (1 of 2 - PCV) 2013 Pap Smear 11/24/2015 COVID-19 Vaccine (1 - 2023- season) 2024 Influenza Vaccine (FLU shot) (#1) 2024 Depression Monitoring 01/15/2024 01/14/2023 Albumin/Creatinine Ratio Discontinued 023, 08/17/2011, 04/14/2010, Additional history exists Diabetic Foot Exam Discontinued 01/14/2023 HPV (Gardasil) Vaccine Aged Out No lo nger eligible based on patient's age to complete this topic MENINGOCOCCAL (MENACTRA/MENVEO) Aged Out No longer eligible based on patient's age to complete this topic Meningitis B Vaccine (Bexsero/Trumemba) Aged Out No longer eligible based on patient's age to complete this topic documented as of this encounter Medical Devices Not on filedocumented as of this encounter Visit Diagnoses Diagnosis Type 1 diabetes mellitus on insulin therapy (HCC) Type I (juvenile type) diabetes mellitus without mention of complication, not stated as uncontrolled documented in this encounter Advance Directives * Full Code (Latest Code Status on File) Date Activated Date Inactivated Comments 04/19/2013 9:50 PM 04/21/2013 10:01 PM This orde r reflects the patients wishes and were consensually agreed upon. Question Answer Comments Discussion of Advance Directives occurred with: Not Discussed * Full Code Date Activated Date Inactivated Comments 12/14/2012 11:42 PM 12/17/2012 7:33 PM This order reflects the patients wishes and were consensually agreed upon. Question Answer Comments Discussion of Advance Directives occurred with: Not Discussed
--- OUTSIDE RECORDS SUMMARY | 2024-07-28 20:20 | External Medical Summary | Summary of Care ---
Author Name Unknown Organization [facility] Address [address] [facility] [place] [address] Phone [phone] Care Team Providers Care Dairy Products Maker Name Role Phone Unavailable Primary Care Provider Unavailabl e Reason for Visit * Reason Onset Date Comments Referral 06/15/2024 Encounter Details Date Type Department Care Team (Late st Contact Info) Description 06/15/20[address]ocr[address] [place] [phone] Simi, Pharmacist Endocrinology [address] [place] [address] [address] Referral Allergies Active Allergy Reactions Criticality Noted Date Comments No Known Drug Allergy 04/02/2001 documented as of this encounter (statuses as of 06/16/2024) Medications Ondansetron 4 MG Oral Tablet Disintegrating (Zofran) Place 1 Tablet on tongue every 8 hours as needed for Nausea or Vomiting. dissolve on tongue. 12 Tablet 12/16/19 23 Active Norgestim-Eth Estrad Triphasic 0.18/0.215/0.25 MG-25 MCG Oral Tablet Take 1 Tablet by mouth in the morning. Active BD Pen Needle Short U/F 31G X 8 MM (Insulin Pen Needle) Use to inject insulin in case of pump failure up to 4 times daily 100 Each 5 01/23/20 23 Active Insulin Aspart FlexPen 100 UNIT/ML Subcutaneous Solution Pen-injector For pump back up, inject before meals to cover carbs and correct high glucoses. TDD: 50 u/d 15 mL 01/23/20 Active Insulin Glargine Solostar 100 UNIT/ML Subcutaneous Solution Pen-injector (Lantus SoloStar) For insulin pump back up: inject 31 units daily 15 mL 01/23/20 Active Gvoke HypoPen 2-Pack 1 MG/0.2ML Subcutaneous Solution Auto-injector (Glucagon) Inject 1.0 mg under the skin of belly/thigh or upper arm as needed for unresponsiveness due to suspected hypoglycemia 0.4 mL 01/23/20 Active Contour Next Test In Vitro Strip (Glucose Blood) CONTOUR NEXT test strip, For testing blood sugar 4 times daily in case of CGM failure. E10.9 200 Strip 01/23/20 Active Sertraline HCl 50 MG Oral Tablet (Zoloft)Indicatio ns:Mild episode of recurrent major depressive disorder (HCC) Take 1.5 Tablets by mouth in the morning. 30 Tablet 02/13/20 Active Accu-Chek Guide In Vitro Strip (Glucose Blood) For testing blood sugar 4 times daily 200 Strip 03/13/20 Active Lisinopril 2.5 MG Oral Tablet (Prinivil)Indicat ions:Type 1 diabetes mellitus in patient 13 to 19 years of age with hemoglobin A1c goal of less than 7.5% ([facility]),Proteinuria , unspecified type take 1 tablet by mouth every morning 30 Tablet 08/03/19 Active Omnipod 5 G6 Intro (Gen 5) KitIndications:Ty pe 1 diabetes mellitus on insulin therapy ([facility]) Use as directed. 1 Kit 08/23/19 Active Dexcom G6 Scrap Iron Cutter DeviceIndications :Type 1 diabetes mellitus on insulin therapy ([facility]) Use as directed. 1 Each 08/23/19 24 Active Insulin Aspart 100 UNIT/ML Injection Solution (NovoLOG)Indicati ons:Type 1 diabetes mellitus on insulin therapy ([facility]) For use in insulin pump, anticipated need is up to 75 units per day. 80 mL 04/28/20 Active Dexcom G6 TransmitterIndica tions:Type 1 diabetes mellitus on insulin therapy ([facility]) Use as directed. 1 Each 3 04/28/20 24 Active Omnipod 5 [id number] Pods Gen 5Indications:Type 1 diabetes mellitus on insulin therapy ([facility]) Use as directed. Apply new pod every 2-3 days. 15 Each 3 04/28/20 24 Active Dexcom G6 SensorIndications :Type 1 diabetes mellitus on insulin therapy (HCC) 1 every 10 days to monitor blood sugar 3 Each 3 04/28/20 24 Active Ketostix In Vitro Strip (Acetone (Urine) Test)Indications: Type 1 diabetes mellitus on insulin therapy (HCC) FOR TEST URINE KETONES IF GLUCOSE OVER 300 TWICE IN A ROW OR SICK 100 Strip 3 05/26/19 25 Active documented as of this encounter (statuses as of 06/16/2024) Active Problems Problem Noted Date Diagnosed Date Food insecurity 02/11/2023 Overview: Per [facility] Protocol documented as of this encounter (statuses as of 06/16/2024) Resolved Problems Problem Noted Date Diagnosed Date Resolved Date DKA (diabetic ketoacidoses) 04/20/2013 01/14/2023 Hyperchloremia 12/15/2012 01/22/2023 DKA, type 1 12/14/2012 01/22/2023 Type 1 diabetes mellitus in patient 13 to 19 years of age with hemoglobin A1c goal of less than 7.5% 09/16/2009 01/22/2023 Overview (09/05/2015): ICD-10 update of inactive term documented as of this encounter (statuses as of 06/16/2024) Social History Tobacco Use Types Packs/Day Years [...] encounter Miscellaneous Notes * Telephone Encounter - Crystal Garcia RPh - 06/15/2024 3:41 PM EST Noted, thanks * Telephone Encounter - Yarelis Griggs PHARM Tech - 06/15/2024 3:25 PM EST Patient had 2 no show appointments for [facility] Endocrinology. Will consider discharge at this time. Inactive on roster. Thank you, Yarelis Griggs Patient Transporter [facility] 06/15/2024,3:26 PM documented in this encounter Plan of Treatment [...] PCV) 2013 Pap Smear 11/24/2015 COVID-19 Vaccine ( - 2023- season) 2024 Influenza Vaccine (FLU [...] Not on filedocumented as of this encounter Advance Directives * Full Code [...]
--- OUTSIDE RECORDS SUMMARY | 2024-07-28 20:20 | External Medical Summary | Summary of Care ---
Author Name Unknown Organization [facility] Address [address] [place] [address] Phone [phone] Care Team Providers Care Hairspring Studder Name Role Phone Unavailable Primary Care Provider Unavailabl e Reason for Visit * Reason Onset Date Comments Medication Refill 07/06/2024 Encounter Details Date Type Department Care Team (Late st Contact Info) Description 07/06/2024 Refill [facility] [address] [place] [address] Paul Franz PA-C [address] [place] [address] Allergies Active Allergy Reactions Criticality Noted Date Comments No Known Drug Allergy 04/02/2001 documented as of this encounter (statuses as of 07/07/2024) Medications Ondansetron 4 MG Oral Tablet Disintegrating [...] unresponsiveness due to suspected hypoglycemia 0.4 mL 023 Active Contour Next Test In Vitro Strip (Glucose Blood) CONTOUR NEXT test strip, For testing blood sugar 4 times daily in case of CGM failure. E10.9 200 Strip 023 Active Sertraline HCl 50 MG Oral [...] hemoglobin A1c goal of less than 7.5% ([facility]),Proteinuria , unspecified type take 1 tablet by mouth every morning 30 Tablet 024 Active Omnipod 5 G6 Intro (Gen 5) KitIndications:Ty pe 1 diabetes mellitus on insulin therapy ([facility]) Use as directed. 1 Kit 024 Active Dexcom G6 Petrol Tanker Driver DeviceIndications :Type 1 diabetes mellitus on insulin therapy ([facility]) Use as directed. 1 Each 024 Active Insulin Aspart 100 UNIT/ML Injection Solution (NovoLOG)Indicati ons:Type 1 diabetes mellitus on insulin therapy ([facility]) For use in insulin pump, anticipated need is up to 75 units per day. 80 mL 3 024 Active Dexcom G6 TransmitterIndica tions:Type 1 diabetes mellitus on insulin therapy ([facility]) Use as directed. 1 Each 3 024 Active Omnipod 5 [id number] Pods Gen 5Indications:Type 1 diabetes mellitus on insulin therapy ([facility]) Use as directed. Apply new pod every 2-3 days. 15 Each 3 024 Active Dexcom G6 SensorIndications :Type 1 diabetes mellitus on insulin therapy ([facility]) 1 every 10 days to monitor blood sugar 3 Each 3 024 Active Ketostix In Vitro Strip (Acetone (Urine) Test)Indications: Type 1 diabetes mellitus on insulin therapy ([facility]) FOR TEST URINE KETONES IF [...] 31 units daily 15 mL 025 Active Insulin Aspart FlexPen 100 UNIT/ML Subcutaneous Solution Pen-injector For pump back up, inject before meals to cover carbs and correct high glucoses. TDD: 50 u/d 15 mL 5 023 2024 Disconti nued(Ref ill) Insulin Glargine Solostar 100 UNIT/ML Subcutaneous Solution Pen-injector (Lantus SoloStar) For insulin pump back up: inject 31 units daily 15 mL 5 023 2024 Disconti nued(Ref ill) documented as of this encounter (statuses as of 07/07/2024) Active Problems Problem Noted Date Diagnosed Date Food insecurity 02/11/2023 Overview: Per [facility] Protocol documented as of this encounter (statuses as of 07/07/2024) Resolved Problems Problem Noted Date Diagnosed Date Resolved Date DKA (diabetic ketoacidoses) 04/20/2013 01/14/2023 Hyperchloremia 12/15/2012 01/22/2023 DKA, type 1 12/14/2012 01/22/2023 Type 1 diabetes mellitus in patient 13 to 19 years of age with hemoglobin A1c goal of less than 7.5% 09/16/2009 01/22/2023 Overview (09/05/2015): ICD-10 update of inactive term documented as of this encounter (statuses as of 07/07/2024) Social History Tobacco Use Types Packs/Day Years [...] encounter Miscellaneous Notes * Telephone Encounter - Paul Franz PA-C - 07/07/2024 3:25 PM ESTSigned Prescriptions: Disp Refills Insulin Aspart FlexPen 100 UNIT/ML Subcuta*15 mL 0 Sig: For pump back up, inject before meals to cover carbs and correct high glucoses. TDD: 50 u/d Authorizing Provider: PAUL FRANZ Insulin Glargine Solostar 100 UNIT/ML Subc*15 mL 0 Sig: For insulin pump back up: inject 31 units daily Authorizing Provider: PAUL FRANZ * Telephone Encounter - Melissa Larson [facility] - 07/07/2024 9:23 AM ESTPending Prescriptions: Disp Refills Insulin Aspart FlexPen 100 UNIT/ML Subcuta*15 mL 5 Sig: For pump back up, inject before meals to cover carbs and correct high glucoses. TDD: 50 u/d Insulin Glargine Solostar 100 UNIT/ML Subc*15 mL 5 Sig: For insulin pump back up: inject 31 units daily * Telephone Encounter - Melissa Larson CMA - 07/07/2024 9:23 AM EST Pending Prescriptions: Disp Refills Insulin Aspart FlexPen 100 UNIT/ML Subcut*15 mL 5 Sig: For pump back up, inject before meals to cover carbs and correct high glucoses. TDD: 50 u/d Insulin Glargine Solostar 100 UNIT/ML Sub*15 mL 5 Sig: For insulin pump back up: inject 31 units daily 08/23/2023 (in office), Visit date not found (telemedicine) Visit date not found If no future appointments scheduled, and last appointment is greater than a year ago, please schedule patient for a follow-up appointment Last date the medication was ordered: 04/28/24 Pharmacy: [id number] Labs: Lab Results Component Value Date/Time CREATININE - [facility] 0.7 01/15/2023 09:25 AM CREATININE - [facility] 0.8 01/03/2016 05:36 PM CREATININE, RANDOM URINE - [facility] 150 01/14/2023 01:26 PM CREATININE, RANDOM URINE - [facility] 39 09/08/2003 01:30 PM No components found for: "E G" * Telephone Encounter - Kateryna Tolbert OSA - 07/07/2024 7:29 AM ESTPending Prescriptions: Disp Refills Insulin Aspart FlexPen 100 UNIT/ML Subcuta*15 mL 5 Sig: For pump back up, inject before meals to cover carbs and correct high glucoses. TDD: 50 u/d Insulin Glargine Solostar 100 UNIT/ML Subc*15 mL 5 Sig: For insulin pump back up: inject 31 units daily documented in this encounter Plan of Treatment Upcoming Encounters Date Type Department Care Team (Late st Contact Info) Description 08/03/2024 12:00 PM EDT Office Visit Endocrinology Simi [address] Dr [address] [place] [address] Akiko Sy CRNP [address] [place] [address] Health Maintenance Due Date Last Done Comments Hepatitis C Screening 2012 DTap/Tdap Vaccines (1 - Tdap) 2013 Hepatitis B Vaccine (1 of 3 - 19+ 3-dose series) 2013 Pneumococcal Vaccine: Pediatrics (0 to 5 Years) and At-Risk Patients (6 to 18 Years and 19+ Years) (1 of 2 - PCV) 2013 Pap Smear 11/24/2015 COVID-19 Vaccine ( - season) 2024 Influenza Vaccine (FLU shot) (#1) [...]
--- OUTSIDE RECORDS SUMMARY | 2024-07-28 20:20 | External Medical Summary | Summary of Care ---
Author Name Unknown Organization [facility] Address [address] [facility] [place] [address] Phone [phone] Care Team Providers Care Supervisor [employer]ision Optical Elements Name Role Phone Latrice Prieto PA-C Primary Care Provide r Reason for Visit * Reason Onset Date Comments Medication Refill 04/25/2024 Encounter Details Date Type Department Care Team (Late st Contact Info) Description 04/25/2024 Refill Endocrinology [address] [place] [phone] Akiko Sy CRNP [address] [place] [address] [address] Type 1 diabetes mellitus on insulin therapy (HCC) Allergies Active Allergy Reactions Criticality Noted Date Comments No Known Drug Allergy 04/02/2001 documented as of this encounter (statuses as of 04/28/2024) Medications Ondansetron 4 MG Oral Tablet Disintegrating [...] times daily 100 Each 5 023 Active Insulin Aspart FlexPen 100 UNIT/ML Subcutaneous Solution Pen-injector For pump back up, inject before meals to cover carbs and correct high glucoses. TDD: 50 u/d 15 mL Active Insulin Glargine Solostar 100 UNIT/ML Subcutaneous Solution Pen-injector (Lantus SoloStar) For insulin pump back up: inject 31 units daily 15 mL Active Gvoke HypoPen 2-Pack 1 MG/0.2ML Subcutaneous Solution Auto-injector (Glucagon) Inject 1.0 mg under the skin of belly/thigh or upper arm as needed for unresponsiveness due to suspected hypoglycemia 0.4 mL Active Contour Next Test In Vitro Strip (Glucose Blood) CONTOUR NEXT test strip, For testing blood sugar 4 times daily in case of CGM failure. E10.9 200 Strip Active Ketostix In Vitro Strip (Acetone (Urine) Test) for testing urine ketones if glucose over 300 twice in a row or sick 50 Strip Active Sertraline HCl 50 MG Oral Tablet (Zoloft)Indicatio ns:Mild episode of recurrent major depressive disorder (HCC) Take 1.5 Tablets by mouth in the morning. 30 Tablet Active Accu-Chek Guide In Vitro Strip (Glucose Blood) For testing blood sugar 4 times daily 200 Strip 023 Active Lisinopril 2.5 MG Oral Tablet (Prinivil)Indicat ions:Type 1 diabetes mellitus in patient 13 to 19 years of age with hemoglobin A1c goal of less than 7.5% ([facility]),Proteinuria , unspecified type take 1 tablet by mouth every morning 30 Tablet 024 Active Omnipod 5 G6 Intro (Gen 5) KitIndications:Ty pe 1 diabetes mellitus on insulin therapy (HCC) Use as directed. 1 Kit Active Dexcom G6 Magazine Designer DeviceIndications :Type 1 diabetes mellitus on insulin therapy (HCC) Use as directed. 1 Each 024 Active Omnipod 5 [id number] Pods Gen 5Indications:Type 1 diabetes mellitus on insulin therapy (HCC) Use as directed. Apply new pod every 2-3 days. 15 Each 3 Active Dexcom G6 SensorIndications :Type 1 diabetes mellitus on insulin therapy (HCC) 1 every 10 days to monitor blood sugar 3 Each 3 024 Active Insulin Aspart 100 UNIT/ML Injection Solution (NovoLOG)Indicati ons:Type 1 diabetes mellitus on insulin therapy (HCC) For use in insulin pump, anticipated need is up to 75 units per day. 80 mL 3 024 2023 Disconti nued(Ref ill) Dexcom G6 TransmitterIndica tions:Type 1 diabetes mellitus on insulin therapy (HCC) Use as directed. 1 Each 3 024 2023 Disconti nued(Ref ill) Omnipod 5 G6 Pods (Gen 5)Indications:Typ e 1 diabetes mellitus on insulin therapy (HCC) Use as directed. Apply new pod every 2-3 days. 15 Each 3 024 2023 Disconti nued(Ref ill) Dexcom G6 SensorIndications :Type 1 diabetes mellitus on insulin therapy (HCC) 1 every 10 days to monitor blood sugar 3 Each 3 024 2023 Disconti nued(Ref ill) documented as of this encounter (statuses as of 04/28/2024) Active Problems Problem Noted Date Diagnosed Date Food insecurity 02/11/2023 Overview: Per [facility] Protocol documented as of this encounter (statuses as of 04/28/2024) Resolved Problems Problem Noted Date Diagnosed Date Resolved Date DKA (diabetic ketoacidoses) 04/20/2013 01/14/2023 Hyperchloremia 12/15/2012 01/22/2023 DKA, type 1 12/14/2012 01/22/2023 Type 1 diabetes mellitus in patient 13 to 19 years of age with hemoglobin A1c goal of less than 7.5% 09/16/2009 01/22/2023 Overview (09/05/2015): ICD-10 update of inactive term documented as of this encounter (statuses as of 04/28/2024) Social History Tobacco Use Types Packs/Day Years [...] encounter Miscellaneous Notes * Telephone Encounter - Yael Carpenter CRNP - 04/28/2024 8:08 AM ESTSigned Prescriptions: Disp Refills Omnipod 5 [id number] Pods Gen 5 15 Each3 Sig: Use as directed. Apply new pod every 2-3 days. Authorizing Provider: YAEL CARPENTER Dexcom G6 Sensor 3 Each 3 Si every 10 days to monitor blood sugar Authorizing Provider: YAEL CARPENTER -- * Telephone Encounter - Melissa Larson CMA - 04/28/2024 7:02 AM ESTPending Prescriptions: Disp Refills Omnipod 5 [id number] Pods Gen 5 15 Each3 Sig: Use as directed. Apply new pod every 2-3 days. Dexcom G6 Sensor 3 Each 3 Si every 10 days to monitor blood sugar * Telephone Encounter - Melissa Larson CMA - 04/28/2024 7:01 AM EST Pending Prescriptions: Disp Refills Omnipod 5 [id number] Pods Gen 5 15 Each3 Sig: Use as directed. Apply new pod every 2-3 days. Dexcom G6 Sensor 3 Each 3 Si every 10 days to monitor blood sugar Visit date 08/23/2023(in office), Visit date not found (telemedicine) 06/01/2024 If no future appointments scheduled, and last appointment is greater than a year ago, please schedule patient for a follow-up appointment Last date the medication was ordered: 11/18/23 [facility]: [facility] [id number] Labs: Lab Results Component Value Date/Time CREATININE - [facility] 0.7 01/15/2023 09:25 AM CREATININE - [facility] 0.8 01/03/2016 05:36 PM CREATININE, RANDOM URINE - [facility] 150 01/14/2023 01:26 PM CREATININE, RANDOM URINE - [facility] 39 09/08/2003 01:30 PM No components found for: "E G" documented in this encounter Plan of Treatment Upcoming Encounters Date Type Department Care Team (Late st Contact Info) Description 06/01/2024 9:30 AM EST Telemedicine Endocrinology [address], [place] [phone] Simi, Pharmacist Endocrin[place] [address] 06/16/2024 2:00 PM EST Office Visit Endocrinology Simi [address] [place] [phone] Akiko Sy CRNP [address] [place] [address] [address] Health Maintenance Due Date Last Done Comments Hepatitis C Screening 2012 DTap/Tdap Vaccines (1 - Tdap) 2013 Hepatitis B Vaccine (1 of 3 - 19+ 3-dose series) 2013 Pneumococcal Vaccine: Pediatrics (0 to 5 Years) and At-Risk Patients (6 to 64 Years) (1 of 2 - PCV) 2013 Pap Smear 11/24/2015 COVID-19 Vaccine (1 - season) 2024 Influenza Vaccine (FLU shot) [...] of Advance Directives occurred with: Not Discussed Care Teams Supervisor [employer] Relationship Specialty Start Date End Date Latrice Prieto PA-C [address] [place] [id number] PCP - General Physician Blood Tester 08/05/23 documented as of this encounter
--- OUTSIDE RECORDS SUMMARY | 2024-07-28 20:20 | External Medical Summary | Summary of Care ---
Author Name Unknown Organization [facility] Address [address] [facility] [place] [address] Phone [phone] Care Team Providers Care Jigger Machine Operator Name Role Phone Unavailable Primary Care Provider Unavailabl e Reason for Visit * Reason Onset Date Comments Referral 06/26/2024 Encounter Details Date Type Department Care Team (Late st Contact Info) Description 06/26/2024 Telephone Endocrin[address] [place] [phone] Simi, Pharmacist Endocrinology [address] [place] [address] [address] Referral Allergies Active Allergy Reactions Criticality Noted Date Comments No Known Drug Allergy 04/02/2001 documented as of this encounter (statuses as of 06/29/2024) Medications Ondansetron 4 MG Oral Tablet Disintegrating [...] goal of less than 7.5% ([facility]),Proteinuria , unspecified type take 1 tablet by mouth every morning 30 Tablet 08/03/19 Active Omnipod 5 G6 Intro (Gen 5) KitIndications:Ty pe 1 diabetes mellitus on insulin therapy ([facility]) Use as directed. 1 Kit 08/23/19 Active Dexcom G6 Sql Dba DeviceIndications :Type 1 diabetes mellitus on insulin therapy ([facility]) Use as directed. 1 Each 08/23/19 24 Active Insulin Aspart 100 UNIT/ML Injection Solution (NovoLOG)Indicati ons:Type 1 diabetes mellitus on insulin therapy ([facility]) For use in insulin pump, anticipated need is up to 75 units per day. 80 mL 04/28/20 Active Dexcom G6 TransmitterIndica tions:Type 1 diabetes mellitus on insulin therapy ([facility]) Use as directed. 1 Each 3 04/28/20 24 Active Omnipod 5 [id number] Pods Gen 5Indications:Type 1 diabetes mellitus on insulin therapy ([facility]) Use as directed. Apply new pod every [...] as of this encounter (statuses as of 06/29/2024) Active Problems Problem Noted Date Diagnosed Date Food insecurity 02/11/2023 Overview: Per [facility] Protocol documented as of this encounter (statuses as of 06/29/2024) Resolved Problems Problem Noted Date Diagnosed Date Resolved Date DKA (diabetic ketoacidoses) 04/20/2013 01/14/2023 Hyperchloremia 12/15/2012 01/22/2023 DKA, type 1 12/14/2012 01/22/2023 Type 1 diabetes mellitus in patient 13 to 19 years of age with hemoglobin A1c goal of less than 7.5% 09/16/2009 01/22/2023 Overview (09/05/2015): ICD-10 update of inactive term documented as of this encounter (statuses as of 06/29/2024) Social History Tobacco Use Types Packs/Day Years [...] Telephone Encounter - Crystal Garcia RPh - 06/29/2024 8:12 AM EST Awaiting patient reply via [employer] to determine a day of the week and time of day to schedule initial MTM appointment. See patient message encounter 06/25. * Telephone Encounter - Yarelis Griggs PHARM Tech - 06/26/2024 1:18 PM EST Pharmacist Medication Therapy Management: Minimum frequency patient should be seen in person for medication management: as appropriate per clinical condition and patient status By my signature, I understand that my patient Crystal Hurd will have her medication therapy managed by the [facility] ([facility]) per established policies, procedures, and protocols. I also certify that this referral may serve as an initiation of service forthe management of drug therapy in the above noted patient. [facility] providers will be responsible for scheduling patient visits, obtaining appropriate laboratory studies, and adjusting medication management therapy per patient's need, in addition to those roles spelled out in the clinic policy, procedures, and drug management protocols. I understand that the service provided by the [facility] is voluntary and have informed patient that they can refuse the service at their discretion. I am aware that the [facility] will provide me with a copy of the patient encounter via my [employer]. I authorize the [facility] to carry out these activities on my behalf. I consider this program to be a necessary part of the patient's medical care. Cheryl Watson PA-C Order Specific Questions Referral Priority Within 3 days (urgent) Where should this appointment be scheduled? [facility] Referring Provider Role: Specialist Specialty: Endo Reason for Referral: DM Target A1c: < 7 documented in this encounter Plan of Treatment Upcoming Encounters Date Type Department Care Team (Late st Contact Info) Description 08/03/2024 12:00 PM EDT Office Visit Endocrinology Simi [address] [place], [place] [phone] Akiko Sy CRNP [address] [place], [place] [address] Health Maintenance Due Date Last Done [...]
--- OUTSIDE RECORDS SUMMARY | 2024-07-28 20:20 | External Medical Summary | Summary of Care ---
Author Name Unknown Organization [facility] Address [address] [place] [address] Phone [phone] Care Team Providers Care Insulation Worker Interior Surface Name Role Phone Unavailable Primary Care Provider Unavailabl e Reason for Visit * Reason Comments eRx-Medication Refill Encounter Details Date Type Department Care Team (Late st Contact Info) Description [facility] [address] [place] [address] Beverly Franz PA-C [address] [place] [address] Type 1 diabetes mellitus on insulin therapy (HCC)* Allergies Active Allergy Reactions Criticality Noted Date Comments No Known Drug Allergy 04/02/2001 documented as of this encounter (statuses as of 05/26/2024) Medications Ondansetron 4 MG Oral Tablet Disintegrating [...] up: inject 31 units daily 15 mL 023 Active Gvoke HypoPen 2-Pack 1 MG/0.2ML Subcutaneous Solution Auto-injector (Glucagon) Inject 1.0 mg under the skin of belly/thigh or upper arm as needed for unresponsiveness due to suspected hypoglycemia 0.4 mL 023 Active Contour Next Test In Vitro Strip (Glucose Blood) CONTOUR NEXT test strip, For testing blood sugar 4 times daily in case of CGM failure. E10.9 200 Strip Active Sertraline HCl 50 MG Oral Tablet (Zoloft)Indicati ons:Mild episode of recurrent major depressive disorder (HCC) Take 1.5 Tablets by mouth in the morning. 30 Tablet 023 Active Accu-Chek Guide In Vitro Strip (Glucose Blood) For testing blood sugar 4 times daily 200 Strip 023 Active Lisinopril 2.5 MG Oral Tablet (Prinivil)Indica tions:Type 1 diabetes mellitus in patient 13 to 19 years of age with hemoglobin A1c goal of less than 7.5% ([facility]),Proteinuri a, unspecified type take 1 tablet by mouth every morning 30 Tablet 024 Active Omnipod 5 G6 Intro (Gen 5) KitIndications:T ype 1 diabetes mellitus on insulin therapy ([facility]) Use as directed. 1 Kit 024 Active Dexcom G6 Sales Representative Aircraft DeviceIndication s:Type 1 diabetes mellitus on insulin therapy ([facility]) Use as directed. 1 Each 024 Active Insulin Aspart 100 UNIT/ML Injection Solution (NovoLOG)Indicat ions:Type 1 diabetes mellitus on insulin therapy ([facility]) For use in insulin pump, anticipated need is up to 75 units per day. 80 mL 3 024 Active Dexcom G6 TransmitterIndic ations:Type 1 diabetes mellitus on insulin therapy ([facility]) Use as directed. 1 Each 3 024 Active Omnipod 5 [id number] Pods Gen 5Indications:Typ e 1 diabetes mellitus on insulin therapy (HCC) Use as directed. Apply new pod every 2-3 days. 15 Each 3 024 Active Dexcom G6 SensorIndication s:Type 1 diabetes mellitus on insulin therapy (HCC) 1 every 10 days to monitor blood sugar 3 Each 3 024 Active Ketostix In Vitro Strip (Acetone (Urine) Test)Indications :Type 1 diabetes mellitus on insulin therapy (HCC) FOR TEST URINE KETONES IF GLUCOSE OVER 300 TWICE IN A ROW OR SICK 100 Strip 3 025 Active Ketostix In Vitro Strip (Acetone (Urine) Test) for testing urine ketones if glucose over 300 twice in a row or sick 50 Strip 11 023 05/26 Discontinued documented as of this encounter (statuses as of 05/26/2024) Active Problems Problem Noted Date Diagnosed Date Food insecurity 02/11/2023 Overview: Per [facility] Protocol documented as of this encounter (statuses as of 05/26/2024) Resolved Problems Problem Noted Date Diagnosed Date Resolved Date DKA (diabetic ketoacidoses) 04/20/2013 01/14/2023 Hyperchloremia 12/15/2012 01/22/2023 DKA, type 1 12/14/2012 01/22/2023 Type 1 diabetes mellitus in patient 13 to 19 years of age with hemoglobin A1c goal of less than 7.5% 09/16/2009 01/22/2023 Overview (09/05/2015): ICD-10 update of inactive term documented as of this encounter (statuses as of 05/26/2024) Social History Tobacco Use Types Packs/Day Years [...] encounter Miscellaneous Notes * Telephone Encounter - Cheryl Perez PA-C - 05/26/2024 9:52 AM ESTSigned Prescriptions: Disp Refills Ketostix In Vitro Strip (Acetone (Urine) T*100 St*3 Sig: FOR TEST URINE KETONES IF GLUCOSE OVER 300 TWICE IN A ROW OR SICK Authorizing Provider: CHERYL PEREZ * Telephone Encounter - Brittany Buckley LPN - 05/26/2024 7:40 AM ESTPending Prescriptions: Disp Refills Ketostix In Vitro Strip (Acetone (Urine) T*100 St*3 Sig: FOR TEST URINE KETONES IF GLUCOSE OVER 300 TWICE IN A ROW OR SICK * Telephone Encounter - Brittany Buckley LPN - 05/26/2024 7:39 AM EST This medication has been pended for renewal in accordance with our office medication renewal policy. Pending Prescriptions: Disp Refills Ketostix In Vitro Strip (Acetone (Urine) *100 St*3 Sig: FOR TEST URINE KETONES IF GLUCOSE OVER 300 TWICE IN A ROW OR SICK 08/23/2023 (in office), Visit date not found (telemedicine) Last date the medication was ordered: 01/22/2023 [facility]: [facility] #[id number] [facility] documented in this encounter Plan of Treatment Upcoming Encounters Date Type Department Care Team (Late st Contact Info) Description 06/01/2024 9:30 AM EST Telemedicine Endocrinology [address] [place] [phone] Simi, Pharmacist Endocrinology [address] [place] [address] [address] 06/16/2024 2:00 PM EST Office [...] Type 1 diabetes mellitus on insulin therapy (HCC)- Primary Type I (juvenile type) diabetes mellitus without [...]
--- OUTSIDE RECORDS SUMMARY | 2024-07-28 20:20 | External Medical Summary | Summary of Care ---
Author Name Unknown Organization [facility] Address [address] [place] [address] Phone [phone] Care Team Providers Care Merchandise Shopper Name Role Phone Unavailable Primary Care Provider Unavailabl e Reason for Visit * Reason Comments eRx-Medication Refill Encounter Details Date Type Department Care Team (Late st Contact Info) Description [facility] [address] [place], [place] [id number] Beverly Franz PA-C [address] [place] [address] Allergies Active Allergy Reactions Criticality Noted Date Comments No Known Drug Allergy 04/02/2001 documented as of this encounter (statuses as of 07/10/2024) Medications Ondansetron 4 MG Oral Tablet Disintegrating [...] daily 100 Each 5 01/23/20 23 Active Gvoke HypoPen 2-Pack 1 MG/0.2ML Subcutaneous [...] mouth in the morning. 30 Tablet 11 02/13/20 Active Accu-Chek Guide In Vitro Strip (Glucose Blood) For testing blood sugar 4 times daily 200 Strip 11 03/13/20 Active Lisinopril 2.5 MG Oral Tablet (Prinivil)Indicat ions:Type 1 diabetes mellitus in patient 13 to 19 years of age with hemoglobin A1c goal of less than 7.5% ([facility]),Proteinuria , unspecified type take 1 tablet by mouth every morning 30 Tablet 08/03/19 Active Omnipod 5 G6 Intro (Gen 5) KitIndications:Ty pe 1 diabetes mellitus on insulin therapy ([facility]) Use as directed. 1 Kit 08/23/19 Active Dexcom G6 Single Needle Operator DeviceIndications :Type 1 diabetes mellitus on insulin therapy ([facility]) Use as directed. 1 Each 08/23/19 24 Active Insulin Aspart 100 UNIT/ML Injection Solution (NovoLOG)Indicati ons:Type 1 diabetes mellitus on insulin therapy ([facility]) For use in insulin pump, anticipated need is up to 75 units per day. 80 mL 3 04/28/20 Active Dexcom G6 TransmitterIndica tions:Type 1 diabetes mellitus on insulin therapy ([facility]) Use as directed. 1 Each 3 04/28/20 24 Active Omnipod 5 [id number] Pods Gen 5Indications:Type 1 diabetes mellitus on insulin therapy ([facility]) Use as directed. Apply new pod every 2-3 days. 15 Each 3 04/28/20 24 Active Dexcom G6 SensorIndications :Type 1 diabetes mellitus on insulin therapy ([facility]) 1 every 10 days to monitor blood sugar 3 Each 3 04/28/20 24 Active Ketostix In Vitro Strip (Acetone (Urine) Test)Indications: Type 1 diabetes mellitus on insulin therapy ([facility]) FOR TEST URINE KETONES IF GLUCOSE OVER 300 TWICE IN A ROW OR SICK 100 Strip 3 05/26/19 25 Active Insulin Aspart FlexPen 100 UNIT/ML Subcutaneous Solution Pen-injector For pump back up, inject before meals to cover carbs and correct high glucoses. TDD: 50 u/d 15 mL 07/08/19 25 Active Insulin Glargine Solostar 100 UNIT/ML Subcutaneous Solution Pen-injector (Lantus SoloStar) For insulin pump back up: inject 31 units daily 15 mL 07/08/19 25 Active documented as of this encounter (statuses as of 07/10/2024) Active Problems Problem Noted Date Diagnosed Date Food insecurity 02/11/2023 Overview: Per [facility] Protocol documented as of this encounter (statuses as of 07/10/2024) Resolved Problems Problem Noted Date Diagnosed Date Resolved Date DKA (diabetic ketoacidoses) 04/20/2013 01/14/2023 Hyperchloremia 12/15/2012 01/22/2023 DKA, type 1 12/14/2012 01/22/2023 Type 1 diabetes mellitus in patient 13 to 19 years of age with hemoglobin A1c goal of less than 7.5% 09/16/2009 01/22/2023 Overview (09/05/2015): ICD-10 update of inactive term documented as of this encounter (statuses as of 07/10/2024) Social History Tobacco Use Types Packs/Day Years [...] encounter Miscellaneous Notes * Telephone Encounter - Melissa Larson CMA - 07/10/2024 8:36 AM ESTRefused Prescriptions: Disp Refills Insulin Glargine Solostar 100 UNIT/ML Subc*15 mL 5 Sig: FOR INSULIN PUMP BACK UP inject 31 units subcutaneously dailyRefused By: Shayne LARSON for Refusal: Duplicate Request Insulin Aspart FlexPen 100 UNIT/ML Subcuta*15 mL 5 Sig: FOR PUMP BACK UP,INJECT BEFORE MEALS TO COVER CARBS AND CORRECT HIGH GLUCOSES.DAILY DOSE 50 UNITSRefused By: Shayne LARSON for Refusal: Duplicate Request documented in this encounter Plan of Treatment [...]
--- OUTSIDE RECORDS SUMMARY | 2024-07-28 20:20 | External Medical Summary | Summary of Care ---
Author Name Unknown Organization [facility] Address [address] [place] [address] Phone [phone] Care Team Providers Care Manager Med Surg Name Role Phone Unavailable Primary Care Provider [...] as of this encounter (statuses as of 06/26/2024) Medications Ondansetron 4 MG Oral Tablet Disintegrating [...] hemoglobin A1c goal of less than 7.5% ([facility]),Proteinuria , unspecified type take 1 tablet by mouth every morning 30 Tablet 08/03/19 Active Omnipod 5 G6 Intro (Gen 5) KitIndications:Ty pe 1 diabetes mellitus on insulin therapy ([facility]) Use as directed. 1 Kit 08/23/19 Active Dexcom G6 Tool And Die Repair DeviceIndications :Type 1 diabetes mellitus on insulin therapy ([facility]) Use as directed. 1 Each 08/23/19 24 Active Insulin Aspart 100 UNIT/ML Injection Solution (NovoLOG)Indicati ons:Type 1 diabetes mellitus on insulin therapy ([facility]) For use in insulin pump, anticipated need is up to 75 units per day. 80 mL 04/28/20 Active Dexcom G6 TransmitterIndica tions:Type 1 diabetes mellitus on insulin therapy ([facility]) Use as directed. 1 Each 3 04/28/20 24 Active Omnipod 5 [id number] Pods Gen 5Indications:Type 1 diabetes mellitus on insulin therapy ([facility]) Use as directed. Apply new pod [...] as of this encounter (statuses as of 06/26/2024) Active Problems Problem Noted Date Diagnosed Date Food insecurity 02/11/2023 Overview: Per [facility] Protocol documented as of this encounter (statuses as of 06/26/2024) Resolved Problems Problem Noted Date Diagnosed Date Resolved Date DKA (diabetic ketoacidoses) 04/20/2013 01/14/2023 Hyperchloremia 12/15/2012 01/22/2023 DKA, type 1 12/14/2012 01/22/2023 Type 1 diabetes mellitus in patient 13 to 19 years of age with hemoglobin A1c goal of less than 7.5% 09/16/2009 01/22/2023 Overview (09/05/2015): ICD-10 update of inactive term documented as of this encounter (statuses as of 06/26/2024) Social History Tobacco Use Types Packs/Day Years [...] encounter Miscellaneous Notes * Telephone Encounter - Yarelis Griggs PHARM Tech - 06/26/2024 1:18 PM EST Pharmacist Medication Therapy Management: Minimum frequency patient should be seen in person for medication management: as appropriate per clinical condition and patient status By my signature, I understand that my patient Crystal Hurd will have her medication therapy managed by the [facility] ([facility]) per established policies, procedures, and protocols. I also certify that this referral may serve as an initiation of service forthe management of drug therapy in the above noted patient. [facility] providers will be responsible for scheduling patient visits, obtaining appropriate laboratory studies, and adjusting medication management therapy per patient's need, in addition to those roles spelled out in the clinic policy, procedures, and drug management protocols. I understand that the service provided by the [facility] is voluntary and have informed patient that they can refuse the service at their discretion. I am aware that the [facility] will provide me with a copy of the patient encounter via my TheraCoat. I authorize the [facility] to carry out these activities on my behalf. I consider this program to be a necessary part of the patient's medical care. Cheryl Watson PA-C Order Specific Questions Referral Priority Within 3 days (urgent) Where should this appointment be scheduled? [facility] Referring Provider Role: Specialist Specialty: Endo Reason [...]
--- OUTSIDE RECORDS SUMMARY | 2024-07-28 20:20 | External Medical Summary | Summary of Care ---
Author Name Unknown Organization [facility] Address [address] [place] [address] Phone [phone] Care Team Providers Care Wastewater Engineer Name Role Phone Latrice Prieto PA-C Primary Care Provide r Reason for Visit * Reason Onset Date Comments Referral 02/20/2024 Encounter Details Date Type Department Care Team (Late st Contact Info) Description 02/20/2024 Telephone Endocrinology, [place] [address] [phone] [place], Pharmacist Endocrinology [address] [place] [address] Referral Allergies Active Allergy Reactions Criticality Noted Date Comments No Known Drug Allergy 04/02/2001 documented as of this encounter (statuses as of 02/20/2024) Medications Medication Sig Dispensed Refills Start Date End Date Status Ondansetron 4 MG Oral Tablet Disintegrating (Zofran) Place 1 Tablet on tongue every 8 hours as needed for Nausea or Vomiting. dissolve on tongue. 12 Tablet 12/15/2022 Active Norgestim-Eth Estrad Triphasic 0.18/0.215/0.25 MG-25 MCG Oral Tablet Take 1 Tablet by mouth in the morning. Active BD Pen Needle Short U/F 31G X 8 MM (Insulin Pen Needle) Use to inject insulin in case of pump failure up to 4 times daily 100 Each 5 01/22/2023 Active Insulin Aspart FlexPen 100 UNIT/ML Subcutaneous Solution Pen-injector For pump back up, inject before meals to cover carbs and correct high glucoses. TDD: 50 u/d 15 mL 5 01/22/2023 Active Insulin Glargine Solostar 100 UNIT/ML Subcutaneous Solution Pen-injector (Lantus SoloStar) For insulin pump back up: inject 31 units daily 15 mL 5 01/22/2023 Active Gvoke HypoPen 2-Pack 1 MG/0.2ML Subcutaneous Solution Auto-injector (Glucagon) Inject 1.0 mg under the skin of belly/thigh or upper arm as needed for unresponsiveness due to suspected hypoglycemia 0.4 mL 01/22/2023 Active Contour Next Test In Vitro Strip (Glucose Blood) CONTOUR NEXT test strip, For testing blood sugar 4 times daily in case of CGM failure. E10.9 200 Strip 01/22/2023 Active Ketostix In Vitro Strip (Acetone (Urine) Test) for testing urine ketones if glucose over 300 twice in a row or sick 50 Strip 01/22/2023 Active Sertraline HCl 50 MG Oral Tablet (Zoloft)Indications :Mild episode of recurrent major depressive disorder (HCC) Take 1.5 Tablets by mouth in the morning. 30 Tablet 11 02/12/2023 Active Accu-Chek Guide In Vitro Strip (Glucose Blood) For testing blood sugar 4 times daily 200 Strip 11 03/13/2023 Active Lisinopril 2.5 MG Oral Tablet (Prinivil)Indicatio ns:Type 1 diabetes mellitus in patient 13 to 19 years of age with hemoglobin A1c goal of less than 7.5% (HCC),Proteinuria, unspecified type take 1 tablet by mouth every morning 30 Tablet 08/03/2023 Active Insulin Aspart 100 UNIT/ML Injection Solution (NovoLOG)Indication s:Type 1 diabetes mellitus on insulin therapy (HCC) For use in insulin pump, anticipated need is up to 75 units per day. 80 mL 3 08/23/2023 Active Omnipod 5 G6 Intro (Gen 5) KitIndications:Type 1 diabetes mellitus on insulin therapy (HCC) Use as directed. 1 Kit 08/23/2023 Active Dexcom G6 Elevator Service Technician DeviceIndications:T ype 1 diabetes mellitus on insulin therapy (HCC) Use as directed. 1 Each 08/23/2023 Active Dexcom G6 TransmitterIndicati ons:Type 1 diabetes mellitus on insulin therapy (HCC) Use as directed. 1 Each 3 08/23/2023 Active Omnipod 5 G6 Pods (Gen 5)Indications:Type 1 diabetes mellitus on insulin therapy (HCC) Use as directed. Apply new pod every 2-3 days. 15 Each 3 11/18/2023 Active Dexcom G6 SensorIndications:T ype 1 diabetes mellitus on insulin therapy (HCC) 1 every 10 days to monitor blood sugar 3 Each 3 11/18/2023 Active documented as of this encounter (statuses as of 02/20/2024) Active Problems Problem Noted Date Diagnosed Date Food insecurity 02/11/2023 Overview: Per [facility] Protocol documented as of this encounter (statuses as of 02/20/2024) Resolved Problems Problem Noted Date Diagnosed Date Resolved Date DKA (diabetic ketoacidoses) 04/20/2013 01/14/2023 Hyperchloremia 12/15/2012 01/22/2023 DKA, type 1 12/14/2012 01/22/2023 Type 1 diabetes mellitus in patient 13 to 19 years of age with hemoglobin A1c goal of less than 7.5% 09/16/2009 01/22/2023 Overview: ICD-10 update of inactive term documented as of this encounter (statuses as of 02/20/2024) Social History Tobacco Use Types Packs/Day Years [...] money to get more. Sometimes true 03/2023 Sex and Gender Information Value Date Recorded Sex Assigned at Female 07/03/2023 8:52 PM EST Gender Identity Female 07/03/2023 8:52 PM EST Sexual Orientation Straight 07/03/2023 8: 52 PM EST Job Start Date Occupation Industry Not on file Not on file Not on file documented as of this encounter Miscellaneous Notes * Telephone Encounter - Crystal Garcia [facility] - 02/20/2024 1:06 PM EDT Please send patient a Libboo message with details of initial pharmacist visit. Of note, the visit is a video. Thanks! * Telephone Encounter - Angelita Martines, sleeve tailor - 02/20/2024 11:48 AM EDT Images from the original note were not included. Referral Referral # [id number] Referral Information Referral # Creation Date Referral Status Status Update [id number] 02/19/2024 Pending Review 02/19/2024: Status History Status Reason Referral Type Referral Reasons Referral Class System Automatically Pend Evaluate & Treat - Unlimited Visits Specialty Services Required Internal To Specialty To Provider To Location/Place of Service To Department Pharmacist none none none To Vendor Referred By By Location/Place of Service By Department none Peewee Smith CRNP [facility] [address] Priority Start Date Expiration Date Referral Entered By Within 10 days (routine) 02/19/2024 08/17/2024 Peewee Smith CRNP Visits Requested Visits Authorized Visits Completed Visits Scheduled 99 99 Procedure Information Service Details Procedure Modifiers Provider Requested Approved [id number] - PHARMACIST MEDS THERAPY MGMT REFERRAL OP none 1 1 Diagnosis Information Diagnosis E10.9 (ICD-10-CM) - Type 1 diabetes mellitus on insulin therapy (HCC) E10.65 (ICD-10-CM) - Uncontrolled type 1 diabetes mellitus with hyperglycemia (HCC) Z96.41 (ICD-10-CM) - Insulin pump status Referral Notes Number of Notes: 1 . Type Date User Summary Attachment Provider Comments 02/19/2024 2:17 PM Peewee Smith CRNP Provider Comments - Note: Pharmacist Medication Therapy Management: Minimum frequency patient should be seen in person for medication management: as appropriate per clinical condition and patient status By my signature, I understand that my patient Crystal Hurd will have her medication therapy managed by the [facility] ([facility]) per established policies, procedures, and protocols. I also certify that this referral may serve as an initiation of service forthe management of drug therapy in the above noted patient. [facility] providers will be responsible for scheduling patient visits, obtaining appropriate laboratory studies, and adjusting medication management therapy per patient's need, in addition to those roles spelled out in the clinic policy, procedures, and drug management protocols. I understand that the service provided by the [facility] is voluntary and have informed patient that they can refuse the service at their discretion. I am aware that the [facility] will provide me with a copy of the patient encounter via my Nodeable InZilyo. I authorize the [facility] to carry out these activities on my behalf. I consider this program to be a necessary part of the patient's medical care. GRISEL Almanza Referral Order Order PHARMACIST MEDS THERAPY MGMT REFERRAL OP (Order # [id number]) on 02/19/2024 View Encounter PHARMACIST MEDS THERAPY MGMT REFERRAL OP Pending Review (02/19/2024-08/17/2024) Visits Requested Visits Authorized Visits Completed Visits Scheduled 99 99 -- -- Details documented in this encounter Plan of Treatment Upcoming Encounters Date Type Department Care Team (Late st Contact Info) Description 02/25/2024 2:40 PM EDT Office Visit Family Medicine [address] [phone] Nati Kelly PA-C [address] [place] [address] [place] [address] 03/16/2024 10:30 AM EST Telemedicine Endocrinology [address] [place] [phone] Tara, Pharmacist Endocrinology [address] [place] [address] 04/10/2024 7:00 AM EST Office Visit Endocrinology [address] [place] [phone] Akiko Sy CRNP [address] [place] [address] Health Maintenance Due Date Last Done Comments Pneumococcal Vaccine: Pediatrics (0 to 5 Years) and At-Risk Patients (6 to 64 Years) (1 of 2 - PCV) 2000 Hepatitis C Screening 2012 DTap/Tdap Vaccines (1 - Tdap) 2013 Hepatitis B Vaccine (1 of 3 - 19+ 3-dose series) 2013 Pap Smear 11/24/2015 COVID-19 Vaccine (1 [...] Directives occurred with: Not Discussed Care Teams Wastewater Engineer Relationship Specialty Start Date End Date Latrice Prieto PA-C [address] [place] [address] PCP - General Physician Ice Crusher 08/05/23 documented as of this encounter
--- OUTSIDE RECORDS SUMMARY | 2024-07-28 20:20 | External Medical Summary | Summary of Care ---
Author Name Unknown Organization [facility] Address [address] [place] [address] Phone [phone] Care Team Providers Care Chief Orthoptist Name Role Phone Latrice Prieto PA-C Primary Care Provide r Reason for Visit * Reason Onset Date Comments Medication Refill 04/25/2024 Encounter Details Date Type Department Care Team (Late st Contact Info) Description [facility] [address] [place] [address] Akiko Sy CRNP [address] [place] [address] Type 1 diabetes mellitus on [...] to 4 times daily 100 Each 5 09/19/2 023 Active Insulin Aspart FlexPen 100 UNIT/ML [...] in a row or sick 50 Strip 023 Active Sertraline HCl 50 MG [...] goal of less than 7.5% ([facility]),Proteinuria , unspecified type take 1 tablet by mouth every morning 30 Tablet 024 Active Omnipod 5 G6 Intro (Gen 5) KitIndications:Ty pe 1 diabetes mellitus on insulin therapy ([facility]) Use as directed. 1 Kit 024 Active Dexcom G6 Complex Commercial Litigation Paralegal DeviceIndications :Type 1 diabetes mellitus on insulin therapy ([facility]) Use as directed. 1 Each 024 Active Insulin Aspart 100 UNIT/ML Injection Solution (NovoLOG)Indicati ons:Type 1 diabetes mellitus on insulin therapy (HCC) For use in insulin pump, anticipated need is up to 75 units per day. 80 mL 3 12/24/2 024 Active Dexcom G6 TransmitterIndica tions:Type 1 diabetes mellitus on insulin therapy (HCC) Use as directed. 1 Each 3 Active Insulin Aspart 100 UNIT/ML Injection Solution [...] 04/28/2024 8:08 AM ESTSigned Prescriptions: Disp Refills Insulin Aspart 100 UNIT/ML Injection Solut*80 mL 3 Sig: For use in insulin pump, anticipated need is up to 75 units per day. Authorizing Provider: YAEL CARPENTER DexBureaux A Partager G6 Transmitter 1 Each 3 Sig: Use as directed. Authorizing Provider: YAEL CARPENTER * Telephone Encounter - Melissa Larson CMA - 04/28/2024 7:02 AM ESTPending Prescriptions: Disp Refills Insulin Aspart 100 UNIT/ML Injection Solut*80 mL 3 Sig: For use in insulin pump, anticipated need is up to 75 units per day. Dexcom G6 Transmitter 1 Each 3 Sig: Use as directed. * Telephone Encounter - Melissa Larson CMA - 04/28/2024 7:02 AM EST Pending Prescriptions: Disp Refills insulin aspart (NovoLOG) inj 80 mL 3 Sig: For use in insulin pump, anticipated need is up to 75 units per day. Dexcom G6 Transmitter 1 Each 3 Sig: Use as directed. 08/23/2023 (in office), Visit date not found (telemedicine) Visit date not found If no future appointments scheduled, and last appointment is greater than a year ago, please schedule patient for a follow-up appointment Last date the medication was ordered: 08/23/23 Pharmacy: [facility] #[id number] Labs: Lab Results Component Value Date/Time CREATININE - [facility] 0.7 01/15/2023 09:25 AM CREATININE - [facility] 0.8 01/03/2016 05:36 PM CREATININE, RANDOM URINE - [facility] 150 01/14/2023 01:26 PM CREATININE, RANDOM URINE - [facility] 39 09/08/2003 01:30 PM No components found for: "E G" * Telephone Encounter - Mariella Alfonso OSA - 04/27/2024 7:51 AM ESTPending Prescriptions: Disp Refills Insulin Aspart 100 UNIT/ML Injection Solut*80 mL 3 Sig: For usein insulin pump, anticipated need is up to 75 units per day. Dexcom G6 Transmitter 1 Each 3 Sig: Use as directed. documented in this encounter Plan of Treatment Upcoming Encounters Date Type Department Care Team (Late st Contact Info) Description 06/01/2024 9:30 AM EST Telemedicine Endocrinology [address] [place], [place] [phone] Simi, Pharmacist Endocrinology [address] [place], [place] [address] 06/16/2024 2:00 PM EST Office Visit Endocrinology [address]i [address] [place], [place] [phone] Akiko Sy CRNP [address], [place] [address] Health Maintenance Due Date Last [...] Directives occurred with: Not Discussed Care Teams Chief Orthoptist Relationship Specialty Start Date End Date Latrice Prieto PA-C [address] [place] [address] PCP - General Physician Hide And Skin Processing Worker 08/05/23 documented as of this encounter
[2024-07-28] MEDS ORDERED: INSULIN ASPART 100 UNITS/ML VIAL SC PRN (20:28)
--- NOTE | 2024-07-28 21:21 | Communication Note ---
Date of Service: July 28, 2024 Nursing called me to make me aware the hospitalist now wanted her to be on cardiac monitoring/telemetry. Called Dr. Goldstein who is her physician. She is o n the borderline of DKA currently. Per ob recommendations, she needs to be continuously monitored. If they need cardiac monitoring, per supervisor tumbling and rolling, that cannot be done up here on labor and delivery and my nursing staff are uncomfortable even considering that. Therefore, she would need to be transferred to second floor. Therefore to continuously monitor, would need to take down a monitor and have a nurse there. We are unable to provide that service with the staffing that we currently have. Therefore, should hospitalist want this , she will need to be transferred to a tertiary care facility where this could be done. Dr. Goldstein expresses understanding of this and plans to hold off on this. This is totally his decision based on her medical situation. I also advised that if there is a significant change in her medical status, should consider transfer anyway for [facility] care. The fetus is very reassuring in the 150s with mod variability, small accels, no decels. Category one.
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
[2024-07-28 22:59] LABS: Base Excess VBG -1.6 mEq/L; HCO3 VBG 22 mmol/L; Oxygen Saturation VBG 84.7 %; PCO2 VBG 31 mmHg (38-50); PO2 VBG 48 mmHg; pH VBG 7.45 (7.36-7.41)
[2024-07-28 23:29] LABS: Calcium 7.3 mg/dl (8.6-10.3); Creatinine Clr Calc Pharmacy 103.8 ml/min; Potassium 3.8 mmol/L (3.5-5.1)
[2024-07-28] MEDS: LACTATED RINGER'S 1,000 ML IV SCH (23:42)
[2024-07-29] MEDS: ACETAMINOPHEN 325 MG TAB PO PRN (00:24)
--- NOTE | 2024-07-29 05:08 | Obstetrical Progress Note ---
Date of Service July 29, 2024 Assessment & Plan (1) Type 1 diabetes: (2) : Plan HD 2. iup at 27 1/7 weeks. Reassuring heart monitoring. Management plan per hospitalist. Admission and Anticipated Discharge Date Admission Date: July 28, 2024 Subjective Patient rested overnight. Notes +fm, no lof/vb/contractions Physical Exam Constitutional: WD/WN, vitals as above Gastrointestinal (Abdomen): soft, nt, gravid Psychiatric: A+Ox3, euthymic affect Genitourinary: cx--deferred toco--none efm--130s with mod varaibiltiy, small accels, no decels Results & Data Vital Signs (Past 12 Hours) Vital Signs Temp Pulse Pulse Resp BP BP Pulse Ox 07/29/24 04:05 36.5 C 108 H 18 115/62 07/28/24 23:41 36.6 C 115 H 18 104/55 L 07/28/24 20:22 36.8 C 18 07/28/24 20:18 115 H 127/73 07/28/24 18:56 123 H 18 118/78 98 07/28/24 18:30 110 H 15 118/78 99 O2 Del Method 07/29/24 04:05 07/28/24 23:41 07/28/24 20:22 07/28/24 20:18 07/28/24 18:56 Room Air 07/28/24 18:30 Room Air PG Care Time/CCT Total # of Minutes Spent Total Time Spent with Patient: Total time spent is greater than 50% in coordination of care (as documented) at patient's floor/unit and/or counseling patient: Coding Level of Care Code 19487 SUB INP/OBS CARE 05/30MIN Diagnoses Type 1 diabetes E10.69 Diabetes mellitus complication status: with other specified complication Z34.90 (1) Type 1 diabetes Diabetes mellitus complication status: with other specified complication Qualified Code(s): E10.69 - Type 1 diabetes mellitus with other specified complication
[2024-07-29 06:00] LABS: Base Excess VBG -2.5 mEq/L; HCO3 VBG 22 mmol/L; Oxygen Saturation VBG 72.9 %; PCO2 VBG 35 mmHg (38-50); PO2 VBG 40 mmHg
[2024-07-29 06:09] LABS: Basophils # (auto) 0.03 K/uL (0.00-0.20); Basophils % (auto) 0.4 %; Eosinophils # (auto) 0.16 K/uL (0.00-0.50); Eosinophils % (auto) 2.3 %; Hematocrit (blood only) 27.6 % (37.0-47.0); Hemoglobin 9.1 g/dl (12.0-16.0); Immature Granulocytes # (auto) 0.05 K/uL (0.01-0.20); Immature Granulocytes % (auto) 0.7 %; Lymphocytes # (auto) 2.57 K/uL (1.20-3.40); Lymphocytes % (auto) 36.4 %; Mean Corpuscular Volume 81.9 fL (80.0-100.0); Mean Platelet Volume 9.7 fL (9.4-12.4); Monocytes # (auto) 0.49 K/uL (0.11-0.59); Monocytes % (auto) 6.9 %; Neutrophils # (auto) 3.76 K/uL (1.40-6.50); Neutrophils % (auto) 53.3 %; Platelet Count 233 K/uL (130-400); RDW Coefficient of Variation 12.5 % (11.5-14.5); RDW Standard Deviation 36.5 fL (36.4-46.3); Red Blood Count 3.37 M/uL (4.20-5.40); White Blood Count 7.06 K/ul (4.8-10.8)
[2024-07-29 06:20] LABS: BUN Creatinine Ratio 18.2 (10-20); Calcium 7.2 mg/dl (8.6-10.3); Creatinine Clr Calc Pharmacy 145.3 ml/min; Magnesium 1.6 mg/dl (1.7-2.4); Potassium 3.7 mmol/L (3.5-5.1)
[2024-07-29] MEDS ORDERED: MAGNESIUM OXIDE 400 MG TAB PO SCH (09:00)
[2024-07-29] MEDS: FERROUS SULFATE 325 MG TAB PO SCH (09:07)
[2024-07-29] MEDS: SERTRALINE HCL 50 MG TABLET PO SCH (09:07)
[2024-07-29] MEDS: MAGNESIUM OXIDE 400 MG TAB PO SCH (10:09)
--- NOTE | 2024-07-29 14:29 | Discharge Summary ---
Date of Service July 29, 2024 Admission HPI Per Admitting Provider Patient is a 28yowf with EDC of 10/27/24 per patient report, iup at 27 0/7 weeks who presented to the ED with SOB x 1 month, cp, n/v, feeling like elevated sugars. 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 She was evaluated in the ED. Neg cxr, neg chest CT. Her initial sugar was 330. She was evaluated in the Ed and found to have resolving DKA. Hospitalist has admitted but since having DKA, recommendation would be for continuous monitoring during treatment. The only place to do that in the hospital is on labor and delivery. Patient has a hx of type 1DM. She denies hx of asthma. Patient notes a hx of Ken disease, but has not had any treatment or medications for this in over two years. She gets her pnc with Dr. Martinez in [place]. I do not have records currently, requested. She notes as far as the is concerned, her sugars have been poorly controlled--"all over the place". It sounds like she had an early ultrasound and a normal anatomy us. she notes she has not had any growth ultrasounds, but has one scheduled for next week. Has hx of c/s for her first delivery--NRFHT at 35 1/7. A1C today is 8.2. She does not have an elevated WBC, her h/h shows anemia consistent with . Patient notes good fm. no contractions or vaginal bleeding. She notes n/v in the first and early second trimester but that has resolved. Did vomit once this am. Principal Diagnosis Hyperglycemia + dehydration Discharge Exam Constitutional WD/WN, vitals as above ENMT external ear and nose normal, oropharynx normal Respiratory normal respiratory effort, lungs clear to auscultation Cardiovascular RRR, no murmur, no edema Skin no rashes, warm and dry Discharge Data Allergies Allergy/AdvReac Type Severity Reaction Status Date / Time No Known Allergies Allergy Verified 07/28/24 14:09 Consultations 07/28/24 15:01 ED Decision to Admit Stat 07/28/24 18:55 Consult Obstetrics Routine Ordered Studies 07/28/24 12:44 CT angio chest PE protocol Stat Hospital Course (1) Type 1 diabetes: (2) : (3) Metabolic acidosis with normal anion gap and bicarbonate losses: (4) Shortness of breath: Lin Rojas is a pleasant 28-year-old female at 27 weeks of gestation who presented for SOB x 1 month. H/o T1DM. Found to be in a non-anion gap metabolic acidosis on arrival. Coming in for hyperglycemia/SOB workup. #Non-anion gap metabolic acidosis/ Dehydration The leading cause for SOB on admission is acidosis in the setting of a resolving DKA VB.28/37/38/17 on admission. Anion gap WNL at 8 Leukocytosis; afebrile; non-hypoxic in the emergency department CXR without acute findings Chest CTA revealed no pulmonary embolism or pneumonia Given mild acidosis at 7.28->7.30 on arrival and anion gap WNL, suspect non-a nion gap metabolic acidosis No diarrhea; no history of renal issues Suspected this is secondary to Dexacom and insulin pump disconnection and dehydration - Acidosis resolved after hydration - No changed Insulin basal and scale - Diabetes education given - Patient has an appointment with endocrinology on Saturday # Continuous monitoring OB consult appreciated, recommendations #Hypomagnesemia - replaced #T1DM Last A1c at 8.2% on 07/28/2024 Patient is okay to use her own continuous insulin pump while inpatient see above #Iron deficiency anemia Hgb 10.2 on arrival; MCV 81 Clinically, no signs of active bleeding on physical exam Patient reports that she was prescribed iron tablets 3 weeks ago, but has not been taking them Continue iron supplement Total Time Total Time Spent Total Time Spent (In Minutes): see above Discharge Plan Discharge Items Patient Disposition: Home - Self-Care Reason For Visit: DKA Discharge Diagnosis: hyperglycemia + dehydration Activity: Per Instructions section Non-emergency contact: Primary Care Provider and Lane Marker Installer Call non-emergency contact if: you have any medication questions and your symptoms worsen Follow-up/Referrals: Mikel Montemayor [Primary Care Provider] - Diet: Regular Addtl Attending Provider Instructions: You were in the hospital due to shortness of breath. At though you were not found with elevated sugar that caused an acidosis on your blood. This resolved after IV hydration and administration of insulin We sent to your pharmacy a glucometer: 1.) Contour Next Meter. 2.) Contour Next Test Strips- to check 4x/day. 3.) Microlet Lancets- to check 4x/day. Diabetes Recommendations: 1.) Try to bolus before the meal instead of after to help minimize after meal blood sugar spikes. If you are unsure how much you plan to eat bolus for half the carbs before the meal and the remaining with last bite. 2.) Try to bolus for all snacks consumed. If the snack has carbs, you need to bolus for it. 3.) Create a cheat sheet for counting carbs. Start looking at food labels and get the measuring cups out. Create a list of commonly consumed foods and carb totals to help with more accurate insulin dosing. 4.) Try to consume regular/balanced meals (protein, vegetables, fruits, starches) thru the day with a small snack in between to ensure you are consuming enough calories for you and the baby. Recommended follow up with your Endocrinology as plan on Saturday Follow with your OB/ RESTAURANT MANAGER / PCP within a week We recommended at least 60 oz water daily Take vitamin every day. If you cannot tolerate the regular vitamin, ask about taking 2 Flinestone chewable vitamins every day instead. Will need to double check to make sure whatever vitamin you take has adequate folic acid and other important vitamins and minerals. Please ask your provider for options. Pending Studies at Discharge: No Stand-Alone Forms: [facility], Smoking Cessation Medications and DC Order Prescriptions: New (DME) blood-glucose meter [Contour Next Meter] [facility] [place] See Rx Instructions .Route Qty: 1 0RF Rx Instructions: As directed (DME) Contour Next Test Strips Strip See Rx Instructions .Route Qty: 100 0RF Rx Instructions: To check 4 times a day (DME) lancets [Microlet Lancet] [facility] [place] See Rx Instructions .Route Qty: 100 0RF Rx Instructions: to check 4x/day. Continued insulin lispro 100 unit/mL solution 0 unit continuous subcutaneous infusion CONTINOUS Rx Instructions: up to 50 units per day via medtronic insulin pump ferrous sulfate [FeroSul] 325 mg (65 mg iron) tablet 325 mg PO DAILY sertraline 50 mg tablet 50 mg PO DAILY Discharge Orders: Discharge Order (Routine); Ordered 07/29/24 Ordered By: Cipriaon Johnston Admission Data Admit Date/Time: 07/28/24 19:08 Attending Provider: Kwesi Mathisit Provider: Claribel Theodore Primary Care Provider: Mikel Montemayor Other Providers: Maikol Goldstein; Claribel Theodore Supervising Physician Co-Signing Physician Notes I personally examined the patient and verified all tineo points of history and exam, discussed case, and agree with decision making with Dr Neo Johnston SOB/KENNEY ongoing for a while prior to admission now better. so sob at rest, no KENNEY, has walked around, feels up to going home vitals noted nad heent nc at mmm breathing unlabored no accessory muscles good effort skin no rashes no pallor or icterus neuro no focal deficits CT chest, labs, EKG, w/u noted KENNEY -cardiopulmonary pathology ruled out w yesterday's w/u -feeling better - main intervention was IV fluids - suspect hyperglycemic dehydration + progressing --> likely subacute/ongoing dehydration causing sx. -safe/stable for home -has fingerstick strips since CGM wasn't working appropriately -endocrine f/u on saturday
--- NOTE | 2024-07-29 17:38 | Billing Data ---
Date of Service July 29, 2024 Coding Level of Care Code 63007 IN/OBS DISCH 30 MIN/LESS
--- OUTSIDE RECORDS SUMMARY | 2024-07-29 22:45 | External Medical Summary | Summary of Care ---
Author Name Unknown Organization [facility] Address [address] [place] [address] Phone [phone] Care Team Providers Care Plant Tour Guide Name Role Phone Unavailable Primary Care Provider Unavailabl e Reason for Visit * Reason Onset Date Comments Medication Refill 07/27/2024 Encounter Details Date Type Department Care Team (Late st Contact Info) Description 07/27/2024 Refill Endocrinology [address] [place] [id number] Akiko Sy CRNP [address] [place] [address] [id number] Type 1 diabetes mellitus on insulin therapy (HCC) Allergies Active Allergy Reactions Criticality Noted Date Comments No Known Drug Allergy 04/02/2001 documented as of this encounter (statuses as of 07/29/2024) Medications Ondansetron 4 MG Oral Tablet Disintegrating [...] hemoglobin A1c goal of less than 7.5% ([facility]),Proteinuria , unspecified type take 1 tablet by mouth every morning 30 Tablet 024 Active Omnipod 5 G6 Intro (Gen 5) KitIndications:Ty pe 1 diabetes mellitus on insulin therapy ([facility]) Use as directed. 1 Kit 024 Active Dexcom G6 Manager Transfer DeviceIndications :Type 1 diabetes mellitus on insulin therapy ([facility]) Use as directed. 1 Each 024 Active Insulin Aspart 100 UNIT/ML Injection Solution (NovoLOG)Indicati ons:Type 1 diabetes mellitus on insulin therapy ([facility]) For use in insulin pump, anticipated need is up to 75 units per day. 80 mL 3 024 Active Ketostix In Vitro Strip (Acetone (Urine) Test)Indications: Type 1 diabetes mellitus on insulin therapy ([facility]) FOR TEST URINE KETONES IF [...] as directed. 1 Each 3 025 Active Omnipod 5 [id number] Pods Gen 5Indications:Type 1 diabetes mellitus on insulin therapy (HCC) Use as directed. Apply new pod every 2-3 days. 15 Each 025 Active Dexcom G6 SensorIndications :Type 1 diabetes mellitus on insulin therapy (HCC) 1 every 10 days to monitor blood sugar 3 Each 025 Active Omnipod 5 [id number] Pods Gen 5Indications:Type 1 diabetes mellitus on insulin therapy (HCC) Use as directed. Apply new pod every 2-3 days. 15 Each 3 024 2024 Disconti nued(Ref ill) Dexcom G6 SensorIndications :Type 1 diabetes mellitus on insulin therapy (HCC) 1 every 10 days to monitor blood sugar 3 Each 3 024 2024 Disconti nued(Ref ill) documented as of this encounter (statuses as of 07/29/2024) Active Problems Problem Noted Date Diagnosed Date Food insecurity 02/11/2023 Overview: Per [facility] Protocol documented as of this encounter (statuses as of 07/29/2024) Resolved Problems Problem Noted Date Diagnosed Date Resolved Date DKA (diabetic ketoacidoses) 04/20/2013 01/14/2023 Hyperchloremia 12/15/2012 01/22/2023 DKA, type 1 12/14/2012 01/22/2023 Type 1 diabetes mellitus in patient 13 to 19 years of age with hemoglobin A1c goal of less than 7.5% 09/16/2009 01/22/2023 Overview (09/05/2015): ICD-10 update of inactive term documented as of this encounter (statuses as of 07/29/2024) Social History Tobacco Use Types Packs/Day Years [...] Miscellaneous Notes * Telephone Encounter - Kit Leblanc [facility] - 07/28/2024 3:58 PM EDTSigned Prescriptions: Disp Refills Omnipod 5 [id number] Pods Gen 5 15 Each0 Sig: Use as directed. Apply new pod every 2-3 days.Authorizing Provider: AKIKO SY User: KIT LEBLANC Dexcom G6 Sensor 3 Each 0 Si every 10 days to monitor blood sugarAuthorizing Provider: AKIKO SY User: KIT LEBLANC * Telephone Encounter - Kit Leblanc [facility] - 07/28/2024 3:56 PM EDT RX authorized for this fill only. Zero additional refills given until upcoming appt. 08/03/2024 Kit Leblanc, Pharm.D. Clinical Pharmacist [facility] ([facility]) [phone] documented in this encounter Plan of Treatment [...]
== END 2024-07-29 16:04 | disposition home or self-care (01) | DRG 831 ==
LOC: 4S1 11:13 → ED 11:13 → 4S1 17:05 → INTOOBSV 17:05 → 4S1 18:49 → ED 18:56 → OBSVTOIN 19:08 → SUATTDRO 19:08 → INTOOBSV 19:08 → UNDODISIN 07-29 16:04